=== PATIENT | female | born 1945 | race Caucasian/White ===

== ENCOUNTER 2018-09-22 10:19 | Emergency (ER) | payer BC, MEDICARE ==
--- NOTE | 2018-09-22 10:54 | ERPHSYRPT ---
- History of Present Illness Time Seen by Provider: 09/22/18 10:30 Historian: patient Exam Limitations: no limitations Patient Subjective Stated Complaint: PT states "I was just sitting there and my chest started to hurt, I got really sweaty and nauseous. I took 2 sprays of nitro and it seems to be helping but my chest still hurts." Triage Nursing Assessment: PT alert and oriented X 3, skin pwd. PT ambulates with an upright steady gait, able to speakin clear full sentences. PT left leg swollen in the calf and red. Physician History: Pt is a pleasant 73 y/o female. She states, was sitting on couch, and suddenly developed left sided chest pain that radiated to her left arm, developed cold sweat, and dizziness. Pt stated, she took her nitro sprayx2, and that helped her. She was told to come to the ER for a work up. Pt states, has pain in her left calf as well, as she was off her Coumadin, for a minor surgery for removal of lypoma. Pt denies SOB or wheeze. No F/C/S. No N/V/D or abdominal pain. No edema. Timing/Duration: today Activities at Onset: none Quality: pressure, tightness Location: substernal (left chest pain) Chest Pain Radiation: arm Severity of Pain-Max: moderate Severity of Pain-Current: mild Modifying Factors: Improves With: nitroglycerin Associated Symptoms: diaphoresis Prior Chest Pain/Cardiac Workup: cardiac cath (no stent or CABG) Nitro Today/Relief: 0.4 mg x 2, provided at home Aspirin Treatment Today: no aspirin today Allergies/Adverse Reactions: ceftriaxone sodium [From Rocephin] Adverse Reaction (Intermediate, Verified 08:45) N/V acetaminophen [From Vicodin] Adverse Reaction (Mild, Verified 08/12/18 08:45) Vomiting hydrocodone bitartrate [From Vicodin] Adverse Reaction (Mild, Verified 08/12/18 08:45) Vomiting Home Medications: Warfarin Sodium 3 mg PO DAILY 01/17/15 [History] cephALEXin [Cephalexin] 500 mg PO DAILY 09/22/18 [History] Hx Tetanus, Diphtheria Vaccination/Date Given: Yes Hx Influenza Vaccination/Date Given: Yes Hx Pneumococcal Vaccination/Date Given: Yes Immunizations Up to Date: Yes - Review of Systems Constitutional: Other (Diaphoresis), No Fever, No Chills Eyes: No Symptoms Ears, Nose, & Throat: No Symptoms Respiratory: No Cough, No Dyspnea Cardiac: Chest Pain Abdominal/Gastrointestinal: No Abdominal Pain, No Nausea, No Vomiting, No Diarrhea Genitourinary Symptoms: No Dysuria Musculoskeletal: Other (pain in left calf.) Skin: No Rash Neurological: No Dizziness, No Focal Weakness, No Sensory Changes Psychological: No Symptoms Endocrine: No Symptoms All Other Systems: Reviewed and Negative - Past Medical History Pertinent Past Medical History: Yes Neurological History: No Pertinent History ENT History: No Pertinent History Cardiac History: No Pertinent History Respiratory History: Sleep Apnea Endocrine Medical History: No Pertinent History Musculoskeletal History: Arthritis GI Medical History: Gallbladder Disease, Hemorrhoids, Pancreatitis History: No Pertinent History Psycho-Social History: Anxiety Female Reproductive Disorders: No Pertinent History Other Medical History: hand tremors - Past Surgical History Past Surgical History: Yes Neuro Surgical History: No Pertinent History Cardiac: Cardiac Catheterization Respiratory: No Pertinent History Gastrointestinal: Appendectomy, Cholecystectomy, Hernia Repair Genitourinary: Other Musculoskeletal: Joint Replacement, Orthopedic Surgery Female Surgical History: Hysterectomy Other Surgical History: hiatal hernia repair. right hip replacement. surgical removal of cyst on buttock - Social History Smoking Status: Never smoker Exposure to second hand smoke: No Drug Use: none Patient Lives Alone: No - Female History Hx Now: No - Nursing Vital Signs Nursing Vital Signs: Initial Vital Signs Temperature 99.2 F 09/22/18 10:22 Pulse Rate 90 09/22/18 10:22 Respiratory Rate 18 09/22/18 10:22 Blood Pressure 116/68 09/22/18 10:22 O2 Sat by Pulse Oximetry 94 L 09/22/18 10:22 Pain Scale Pain Intensity 2 - Physical Exam General Appearance: no apparent distress, alert Eye Exam: PERRL/EOMI, eyes nml inspection Ears, Nose, Throat Exam: normal ENT inspection, moist mucous membranes Neck Exam: normal inspection, non-tender, supple, full range of motion Respiratory Exam: normal breath sounds, lungs clear, No respiratory distress Cardiovascular Exam: regular rate/rhythm, normal heart sounds Gastrointestinal/Abdomen Exam: soft, No tenderness, No mass Back Exam: normal inspection, No CVA tenderness, No vertebral tenderness Extremity Exam: normal inspection, normal range of motion, tenderness (of L calf with palpation) Neurologic Exam: alert, oriented x 3, cooperative, normal mood/affect, sensation nml, No motor deficits Skin Exam: normal color, warm, dry SpO2: 94 Oxygen Delivery: Room Air - Course EKG Interpreted by Me: RATE (86), Sinus Rhythm, NORMAL AXIS - CT Exams Chest CT Interpretation: Other (Complete intrathoracic stomach and herniated knuckle of transverse colon.) - Radiology Ultrasound Exam Left Venous Lower Extremity Ultrasound: Other (new thrombosis throughout the greater saphenous vein.) Ordered Tests: Active Orders 24 hr Category Date Time Status Water Sander STAT Care 09/22/18 10:39 Active Oxygen-ED Only NASAL CANNULA 2 lpm Care 09/22/18 10:37 Active CHEST 2 VIEWS (PA AND LAT) Stat Exams 09/22/18 10:38 Completed CHEST WITH CONTRAST [CT] Stat Exams 09/22/18 11:24 Completed VENOUS UNILAT/LIMITED EXTREMIT [US] Stat Exams 09/22/18 11:31 Completed CBC W DIFF Stat Lab 09/22/18 10:54 Completed CMP Stat Lab 09/22/18 10:54 Completed D-DIMER QUANTITATION Stat Lab 09/22/18 10:54 Completed PROTIME WITH INR Stat Lab 09/22/18 10:54 Completed PTT Stat Lab 09/22/18 10:54 Completed TROPONIN Q3H Lab 09/22/18 10:45 Completed Medication Summary Generic Name Dose Route Start Last Admin Trade Name Freq PRN Reason Stop Dose Admin Enoxaparin Sodium 100 mg 09/22/18 12:00 09/22/18 12:05 Enoxaparin Sodium 1 mg/kg (100 mg) 10/22/18 11:59 100 mg SQ Administration Q12H NERY Sodium Chloride 1,000 mls @ 100 mls/hr 09/22/18 14:45 09/22/18 14:43 Sodium Chloride 0.9% 1000 Ml IV 10/22/18 14:44 100 mls/hr .Q10H NERY Administration Discontinued Medications Generic Name Dose Route Start Last Admin Trade Name Freq PRN Reason Stop Dose Admin Enoxaparin Sodium Confirm 09/22/18 12:02 Enoxaparin Sodium Administered 09/22/18 12:03 Dose 120 mg SQ .STK-MED ONE Sodium Chloride Confirm 09/22/18 14:17 Sodium Chloride 0.9% 1000 Ml Administered 09/22/18 14:18 Dose 1,000 mls @ ud .ROUTE .[facility] ONE Lab/Rad Data: Laboratory Result Diagrams 09/22/18 10:54 09/22/18 10:54 Laboratory Results 09/22/18 09/22/18 09/22/18 Range/Units 10:54 10:54 10:54 WBC 4.9 (4.0-10.5) K/mm3 RBC 4.12 (4.1-5.4) M/mm3 Hgb 12.1 (12.0-16.0) gm/dl Hct 38.9 (35-47) % MCV 94.4 (78-100) fl MCH 29.4 (26-32) pg MCHC 31.1 L (32-36) g/dl RDW 14.6 H (11.5-14.0) % Plt Count 146 L (150-450) K/mm3 MPV 10.0 H (6-9.5) fl Gran % 57.5 (36.0-66.0) % Eos # (Auto) 0.14 (0-0.5) Absolute Lymphs (auto) 1.33 (1.0-4.6) Absolute Monos (auto) 0.62 (0.0-1.3) Lymphocytes % 26.9 (24.0-44.0) % Monocytes % 12.6 H (0.0-12.0) % Eosinophils % 2.8 (0.00-5.0) % Basophils % 0.2 (0.0-0.4) % Absolute Granulocytes 2.84 (1.4-6.9) Basophils # 0.01 (0-0.4) PT 15.9 H (9.95-12.35) SECONDS INR 1.36 (0.8-3.0) APTT 26.8 (25.3-37.0) SECONDS D-Dimer 4041 H* (215-500) ng/mL Sodium 141 (137-145) mmol/L Potassium 3.7 (3.5-5.1) mmol/L Chloride 103 (98-107) mmol/L Carbon Dioxide 30 (22-30) mmol/L Anion Gap 11.6 (5-15) MEQ/L BUN 18 H (7-17) mg/dL Creatinine 1.06 H (0.52-1.04) mg/dL Estimated GFR 54.0 ML/MIN Glucose 94 (74-106) mg/dL Calcium 8.9 (8.4-10.2) mg/dL Total Bilirubin 0.50 (0.2-1.3) mg/dL AST 14 (14-36) U/L ALT 18 (0-35) U/L Alkaline Phosphatase 77 (38-126) U/L Troponin I (0.000-0.034) ng/mL Serum Total Protein 7.2 (6.3-8.2) g/dL Albumin 3.7 (3.5-5.0) g/dL 09/22/18 Range/Units 10:45 WBC (4.0-10.5) K/mm3 RBC (4.1-5.4) M/mm3 Hgb (12.0-16.0) gm/dl Hct (35-47) % MCV (78-100) fl MCH (26-32) pg MCHC (32-36) g/dl RDW (11.5-14.0) % Plt Count (150-450) K/mm3 MPV (6-9.5) fl Gran % (36.0-66.0) % Eos # (Auto) (0-0.5) Absolute Lymphs (auto) (1.0-4.6) Absolute Monos (auto) (0.0-1.3) Lymphocytes % (24.0-44.0) % Monocytes % (0.0-12.0) % Eosinophils % (0.00-5.0) % Basophils % (0.0-0.4) % Absolute Granulocytes (1.4-6.9) Basophils # (0-0.4) PT (9.95-12.35) SECONDS INR (0.8-3.0) APTT (25.3-37.0) SECONDS D-Dimer (215-500) ng/mL Sodium (137-145) mmol/L Potassium (3.5-5.1) mmol/L Chloride (98-107) mmol/L Carbon Dioxide (22-30) mmol/L Anion Gap (5-15) MEQ/L BUN (7-17) mg/dL Creatinine (0.52-1.04) mg/dL Estimated GFR ML/MIN Glucose (74-106) mg/dL Calcium (8.4-10.2) mg/dL Total Bilirubin (0.2-1.3) mg/dL AST (14-36) U/L ALT (0-35) U/L Alkaline Phosphatase (38-126) U/L Troponin I < 0.012 (0.000-0.034) ng/mL Serum Total Protein (6.3-8.2) g/dL Albumin (3.5-5.0) g/dL - Progress Progress: unchanged Air Movement: fair Blood Culture(s) Obtained: No Antibiotics given: No Will see patient in: ED ([facility], per Dr Reid, surgery) Counseled pt/family regarding: diagnosis, rad results - Departure Time of Disposition: 15:13 Departure Disposition: Transfer ([facility] ER per Liu Sorto) Clinical Impression: Hiatal hernia Condition: Stable Critical Care Time: No Referrals: VENANCIO PATEL MD [Primary Care Provider] - Additional Instructions: Pt will be transfered to ER of [facility] per Dr Liu Reid, surgery. Per surgeon, pt to be NPO, and NG will be placed. Lovenox was given earlier for DVT , pt's INR 1.3. Continuation of anti coagulation per [facility] surgeon. Family and pt are aware.
[2018-09-22 10:58] LABS: BASOPHIL % 0.2 % (0.0-0.4); Basophil (Absolute #) 0.01 (0-0.4); Eosinophil % 2.8 % (0.00-5.0); Eosinophil (Absolute #) 0.14 (0-0.5); Granulocyte Absolute (ANC) 2.84 (1.4-6.9); Granulocytes % 57.5 % (36.0-66.0); Hematocrit 38.9 % (35-47); Hemoglobin 12.1 gm/dl (12.0-16.0); Lymphocyte (Absolute #) 1.33 (1.0-4.6); Lymphocytes % 26.9 % (24.0-44.0); Mean Cell Volume 94.4 fl (78-100); Mean Corpuscular Hemoglobin 29.4 pg (26-32); Mean Corpuscular Hgb Concent. 31.1 g/dl (32-36); Monocyte (Absolute #) 0.62 (0.0-1.3); Monocytes % 12.6 % (0.0-12.0); Platelet Count 146 K/mm3 (150-450); Red Blood Count 4.12 M/mm3 (4.1-5.4); Red Cell Distribution Width 14.6 % (11.5-14.0); White Blood Count 4.9 K/mm3 (4.0-10.5)
[2018-09-22 11:13] LABS: INR 1.36 (0.8-3.0)
[2018-09-22 11:16] LABS: PTT 26.8 SECONDS (25.3-37.0)
[2018-09-22 11:17] LABS: ALBUMIN 3.7 g/dL (3.5-5.0); ANION GAP 11.6 MEQ/L (5-15); BILIRUBIN,TOTAL 0.5 mg/dL (0.2-1.3); Calcium 8.9 mg/dL (8.4-10.2); Creatinine 1 1.06 mg/dL (0.52-1.04); Potassium 3.7 mmol/L (3.5-5.1); Total Protein 7.2 g/dL (6.3-8.2)
--- NOTE | 2018-09-22 11:31 | XRAY ---
Indication: Chest pain. Comparison: January 15, 2018. PA/lateral chest unchanged again demonstrating normal heart and lungs with large hiatal hernia and partial intrathoracic stomach. Stable right venous access catheter. Bony thorax intact. No new/acute findings.
--- NOTE | 2018-09-22 11:46 | XRAY ---
Indication: Left leg pain. Two-dimensional sonogram and color Doppler imaging of the major venous vessels of the left leg was performed. Comparison: January 06, 2014. Again superficial venous thrombosis at the level of calf. New near occluding thrombosis throughout the greater saphenous vein. Remaining common femoral, superficial femoral, deep femoral, popliteal, and posterior tibial veins are negative for thrombosis. These patent veins demonstrate normal compressibility and normal venous waveforms. Impression: New thrombosis throughout the greater saphenous vein. At the level of the calf, there is again superficial venous thrombosis.
[2018-09-22] MEDS ORDERED: ENOXAPARIN SODIUM SQ SCH (12:00)
[2018-09-22] MEDS ORDERED: ENOXAPARIN SODIUM SQ ONE (12:02)
--- NOTE | 2018-09-22 12:37 | XRAY ---
Indication: Chest pain and short of breath. Elevated d-dimer. Multiple contiguous axial images obtained through the chest using 80 cc Isovue 370 contrast and PE protocol. Comparison: July 03, 2007. There is good opacification of the pulmonary arteries to include the lobar and segmental branches. No filling defect or pulmonary embolus. Heart is not enlarged. Aorta minimally arteriosclerotic without aneurysm/dissection. New right Port-A-Cath. No pathologic mediastinal/hilar lymphadenopathy. Interval enlarging large hiatal hernia with now intrathoracic stomach and also herniated mesenteric fat and a knuckle of transverse colon. Examination of the lung parenchyma demonstrates minimal bilateral dependent atelectasis. Large hiatal hernia again produces bibasilar compressive atelectasis. New 12 mm left lower lobe calcified granuloma. Also new 3-4 mm peripheral left upper lobe noncalcified nodule probably granulomatous (image 15, series 4). No infiltrate or effusion. Bony thorax intact with mild degenerative changes throughout the spine. Limited upper abdomen again demonstrates mild fatty liver. Impression: 1. Negative pulmonary embolus. No acute cardiopulmonary abnormalities. 2. Worsening large hiatal hernia with now complete intrathoracic stomach and herniated knuckle of transverse colon. No complications. 3. New left lower lobe calcified granuloma and tiny left upper lobe noncalcified nodule probably granulomatous. 4. Stable fatty liver. CT DI 23.59
[2018-09-22] MEDS ORDERED: Sodium Chloride 0.9% 1000 ML 1,000 ML ONE (14:17)
[2018-09-22] MEDS ORDERED: Sodium Chloride 0.9% 1000 ML 1,000 ML IV SCH (14:45)
[2018-09-22 15:09] VITALS: BP 166/90
[2018-09-22 15:12] VITALS: O2SAT 94
[2018-09-22] MEDS ORDERED: Zofran 4 MG/2 ML VIAL IV ONE (15:54)
[2018-09-22 15:56] VITALS: PULSE 104
[2018-09-22] MEDS ORDERED: Zofran 4 MG/2 ML VIAL ONE (15:56)
== END 2018-09-22 16:30 | disposition short-term general hospital (02) ==
LOC: ED 10:19
DX: K44.9 Diaphragmatic hernia without obstruction or gangrene (principal); G47.30 Sleep apnea, unspecified; M19.90 Unspecified osteoarthritis, unspecified site; Z79.01 Long term (current) use of anticoagulants; Z79.899 Other long term (current) drug therapy
CPT/HCPCS: 36415; 71046; 71260; 80053; 84484; 85025; 85379; 85610; 85730; 93041; 93971; 96372; 96374; 99285; J1650; J2405

== ENCOUNTER 2019-04-13 13:56 | Emergency (ER) | payer BC, MEDICARE ==
[2019-04-13] MEDS ORDERED: Zofran 4 MG/2 ML VIAL ONE ×2 (14:35→17:36)
[2019-04-13] MEDS ORDERED: Zofran 4 MG/2 ML VIAL IV ONE ×2 (14:36→17:34)
[2019-04-13] MEDS ORDERED: Sodium Chloride 0.9% 1000 ML 1,000 ML IV STA (14:48)
[2019-04-13] MEDS ORDERED: MORPHINE SULFATE 4 MG INJ IV ONE (14:48)
--- NOTE | 2019-04-13 14:55 | ERPHSYRPT ---
- History of Present Illness Time Seen by Provider: 04/13/19 14:44 Historian: patient Exam Limitations: no limitations Patient Subjective Stated Complaint: pt reports vomiting starting yesterday, also reports abdominal pain. pt states "one minute i am cold and the next i am hot" pt reports having an extensive abdominal surgery September 2018 and states the pain is where her surgery site is located. Triage Nursing Assessment: pt is aox3, pupils perrl, febrile, resps easy and non labored, radial pulses strong and equal, cap refill < 3 seconds, abd soft, tender to the epigastrum and upper mid abdomen, bowel sounds present and normoactive x4. pt skin pink warm dry. Physician History: 73-year-old white female with history of sleep apnea, arthritis, gallbladder disease, hemorrhoids, pancreatitis, anxiety Patient arrives with complaint of epigastric pain which has been going since Thursday 2 days ago became much worse yesterday she states is associated with vomiting She has had a fever on arrival. Past medical history includes sleep apnea, arthritis, gallbladder disease, hemorrhoids, pancreatitis, anxiety, carpal tunnel Past surgical history includes cardiac catheter, appendectomy, cholecystectomy, hernia repair, hiatal hernia repair, hysterectomy, right hip replacement Timing/Duration: day(s) (2 days) Activities at Onset: none Quality: aching, cramping Abdominal Pain Onset Location: epigastric Pain Radiation: no radiation Severity of Pain-Max: moderate Severity of Pain-Current: moderate Modifying Factors: Improves With: vomiting. Worsens With: analgesics, antacids , breathing, coughing, defecating, eating, exercise, lying down, movement, palpation, rest, urinating, position, walking Associated Symptoms: fever/chills, nausea, vomiting, No back, No chest pain, No diaphoresis, No diarrhea, No fatigue, No headache, No heartburn, No loss of appetite, No neck pain, No rash, No shortness of breath, No syncope Previous symptoms: no prior history Allergies/Adverse Reactions: ceftriaxone sodium [From Rocephin] Adverse Reaction (Intermediate, Verified 14:15) N/V acetaminophen [From Vicodin] Adverse Reaction (Mild, Verified 04/13/19 14:15) Vomiting hydrocodone bitartrate [From Vicodin] Adverse Reaction (Mild, Verified 04/13/19 14:15) Vomiting Home Medications: Omeprazole 40 mg PO DAILY 04/13/19 [History] Sucralfate 1 gm [Carafate 1 GM] 1 gm PO BID 04/13/19 [History] Warfarin Sodium 3 mg [Coumadin 3 MG] 3.5 mg PO DAILY 04/13/19 [History] Hx Tetanus, Diphtheria Vaccination/Date Given: Yes Hx Influenza Vaccination/Date Given: Yes Hx Pneumococcal Vaccination/Date Given: Yes Immunizations Up to Date: No - Review of Systems Constitutional: Fever, No Chills Eyes: No Symptoms Respiratory: No Cough, No Dyspnea Cardiac: No Chest Pain, No Edema, No Palpitations, No Syncope, No Orthopnea, No PND Abdominal/Gastrointestinal: Abdominal Pain, Nausea, Vomiting, No Diarrhea, No Constipation, No Hematemesis, No Hematochezia, No Melena, No Dysphagia, No Appetite Changes Genitourinary Symptoms: No Dysuria Musculoskeletal: No Back Pain, No Neck Pain Skin: No Rash Neurological: No Dizziness, No Focal Weakness, No Sensory Changes Psychological: No Symptoms Endocrine: No Symptoms All Other Systems: Reviewed and Negative - Past Medical History Pertinent Past Medical History: Yes Neurological History: No Pertinent History ENT History: No Pertinent History Cardiac History: No Pertinent History Respiratory History: Sleep Apnea Endocrine Medical History: No Pertinent History Musculoskeletal History: Arthritis GI Medical History: Gallbladder Disease, Hemorrhoids, Pancreatitis History: No Pertinent History Psycho-Social History: Anxiety Female Reproductive Disorders: No Pertinent History Other Medical History: hand tremors - Past Surgical History Past Surgical History: Yes Neuro Surgical History: No Pertinent History Cardiac: Cardiac Catheterization Respiratory: No Pertinent History Gastrointestinal: Appendectomy, Cholecystectomy, Hernia Repair Genitourinary: Other Musculoskeletal: Joint Replacement, Orthopedic Surgery Female Surgical History: Hysterectomy Other Surgical History: hiatal hernia repair. right hip replacement. surgical removal of cyst on buttock - Social History Smoking Status: Never smoker Exposure to second hand smoke: No Drug Use: none Patient Lives Alone: No - Female History Hx Now: No - Nursing Vital Signs Nursing Vital Signs: Initial Vital Signs Temperature 101.4 F 04/13/19 14:04 Pulse Rate 97 H 04/13/19 14:04 Respiratory Rate 20 04/13/19 14:04 Blood Pressure 174/95 04/13/19 14:04 O2 Sat by Pulse Oximetry 95 04/13/19 14:04 Pain Scale Pain Intensity 4 - Physical Exam General Appearance: mild distress, alert Eye Exam: PERRL/EOMI, eyes nml inspection Ears, Nose, Throat Exam: normal ENT inspection, pharynx normal, moist mucous membranes Neck Exam: normal inspection, non-tender, supple, full range of motion Respiratory Exam: normal breath sounds, lungs clear, No respiratory distress Cardiovascular Exam: regular rate/rhythm, normal heart sounds, capillary refill <2 sec Gastrointestinal/Abdomen Exam: soft, normal bowel sounds, tenderness ( epigastric tenderness), organomegaly, No distention, No mass, No guarding, No ecchymosis, No pulsatile mass, No rebound, No hernia, No hepatomegaly, No splenomegaly Back Exam: normal inspection, normal range of motion, No CVA tenderness, No vertebral tenderness Extremity Exam: normal inspection, normal range of motion, pelvis stable Neurologic Exam: alert, oriented x 3, cooperative, nanotechnician II-XII nml as tested, normal mood/affect, nml cerebellar function, sensation nml, No motor deficits Skin Exam: normal color, warm, dry SpO2 Interpretation: normal (95%) SpO2: 95 - Course Nursing assessment & vital signs reviewed: Yes EKG Interpreted by Me: RATE (89 bpm), Sinus Rhythm, NORMAL AXIS, Other (EKG: Sinus rhythm, 89 beats per minute, normal axis, no acute ST or T wave changes noted) - CT Exams Abdomen/Pelvis CT Interpretation: Discussed w/radiologist (CT and pelvis: Impression: 1. Hazy increased attenuation of the intraperitoneal fat within the small bowel mesentery within the upper abdomen and left hemiabdomen. Consistent with mesenteric panniculitis. This was seen on the prior study as well but is more evident on the current exam. 2. Interval hiatal hernia repair surgery as compared to May 08, 2010. Small amount of nonspecific fluid in soft tissue density adjacent to the posterior aspect of the distal thoracic esophagus just above the surgical site. This may represent postsurgical changes. Correlate clinically 3. There is either some new mild to serial pleural thickening or minimal posterior right basilar pleural effusion as compared to May 08, 2010. 4. Significant intrahepatic and extrahepatic biliary duct distention which may be due to the patient's prior cholecystectomy. Correlate with laboratory data to exclude possibility of bile duct obstruction. There is no pancreatic head mass or definite stone within the distal common bile duct. 3. Small bilateral renal cysts, some focal cortical thinning and scarring at the lateral aspect of the upper pole of the left kidney, and is stable punctate calcification at the lateral margin of the lower pole of the left kidney are seen. There are no solid renal mass or obstructive uropathy 6. Mild diverticulosis without diverticulitis is seen within the distal left hemicolon. 7. Status post appendectomy and hysterectomy the patient has also undergone interval right hip replacement surgery. Moderate osteoarthritis within the left hip has progressed as compared to 2010. 8. An intravenous cava filter is seen in place. Also significant atherosclerotic vascular calcification at the origin of the left renal artery. Renal artery stenosis at this level cannot be excluded 9. Small fat containing ventral hernia in the midline superior to the umbilicus. This is seen on axial image #44 and 45. 10. Some varicosities are seen within the lower pelvis anteriorly, and to a lesser extent the left hemipelvis.. This is seen on prior study from 2009 as well) Ordered Tests: Active Orders 24 hr Category Date Time Status EKG-ER Only STAT Care 04/13/19 14:48 Active IV Insertion STAT Care 04/13/19 14:48 Active ABDOMEN AND PELVIS W CONTRAST [CT] Stat Exams 04/13/19 15:42 Completed AMYLASE Stat Lab 04/13/19 15:00 Completed BLOOD CULTURE Stat Lab 04/13/19 15:00 Ordered CBC W DIFF Stat Lab 04/13/19 15:00 Completed CMP Stat Lab 04/13/19 15:00 Completed CULTURE,URINE Stat Lab 04/13/19 15:16 Received LIPASE Stat Lab 04/13/19 15:00 Completed PROTIME WITH INR Stat Lab 04/13/19 14:10 Completed PTT Stat Lab 04/13/19 14:10 Completed TROPONIN Q3H Lab 04/13/19 15:00 Completed TROPONIN Q3H Lab 04/13/19 18:00 Ordered TROPONIN Q3H Lab 04/13/19 21:00 Ordered TROPONIN Q3H Lab 04/14/19 00:00 Ordered TROPONIN Q3H Lab 04/14/19 03:00 Ordered UA W/RFX UR CULTURE Stat Lab 04/13/19 15:16 Completed Medication Summary Generic Name Dose Route Start Last Admin Trade Name Freq PRN Reason Stop Dose Admin Levofloxacin/Dextrose 500 mg in 100 mls @ 100 mls/hr 04/13/19 17:52 04/13/19 18:02 Levofloxacin 500mg/100ml D5w IV 04/13/19 18:51 100 ml/hr STAT STA 100 mls/hr Administration Discontinued Medications Generic Name Dose Route Start Last Admin Trade Name Mandeep PRN Reason Stop Dose Admin Sodium Chloride 1,000 mls @ 999 mls/hr 04/13/19 14:48 04/13/19 16:30 Sodium Chloride 0.9% 1000 Ml IV 04/13/19 15:48 Infused .Q1H1M STA Infusion Sodium Chloride Confirm 04/13/19 15:17 Sodium Chloride 0.9% 1000 Ml Administered 04/13/19 15:18 Dose 1,000 mls @ ud .ROUTE .STK-MED ONE Levofloxacin/Dextrose Confirm 04/13/19 18:00 Levofloxacin 500mg/100ml D5w Administered 04/13/19 18:01 Dose 500 mg in 100 mls @ ud IV .STK-MED ONE Morphine Sulfate 4 mg 04/13/19 14:48 04/13/19 15:21 Morphine Sulfate 4 Mg Inj IV 04/13/19 14:49 4 mg STAT ONE Administration Morphine Sulfate Confirm 04/13/19 15:17 Morphine Sulfate 4 Mg Inj Administered 04/13/19 15:18 Dose 4 mg .ROUTE .STK-MED ONE Ondansetron HCl 4 mg 04/13/19 14:36 04/13/19 14:37 Zofran 4 Mg/2 Ml Vial IV 04/13/19 14:37 4 mg STAT ONE Administration Ondansetron HCl Confirm 04/13/19 14:35 Zofran 4 Mg/2 Ml Vial Administered 04/13/19 14:36 Dose 4 mg .ROUTE .STK-MED ONE Ondansetron HCl 4 mg 04/13/19 17:34 04/13/19 17:38 Zofran 4 Mg/2 Ml Vial IV 04/13/19 17:35 4 mg STAT ONE Administration Ondansetron HCl Confirm 04/13/19 17:36 Zofran 4 Mg/2 Ml Vial Administered 04/13/19 17:37 Dose 4 mg .ROUTE .STK-MED ONE Lab/Rad Data: Laboratory Result Diagrams 04/13/19 15:00 04/13/19 15:00 Laboratory Results 04/13/19 04/13/19 04/13/19 Range/Units 15:16 15:00 15:00 WBC (4.0-10.5) K/mm3 RBC (4.1-5.4) M/mm3 Hgb (12.0-16.0) gm/dl Hct (35-47) % MCV (78-100) fl MCH (26-32) pg MCHC (32-36) g/dl RDW (11.5-14.0) % Plt Count (150-450) K/mm3 MPV (6-9.5) fl Gran % (36.0-66.0) % Eos # (Auto) (0-0.5) Absolute Lymphs (auto) (1.0-4.6) Absolute Monos (auto) (0.0-1.3) Lymphocytes % (24.0-44.0) % Monocytes % (0.0-12.0) % Eosinophils % (0.00-5.0) % Basophils % (0.0-0.4) % Absolute Granulocytes (1.4-6.9) Basophils # (0-0.4) PT (9.95-12.35) SECONDS INR (0.8-3.0) APTT (25.3-37.0) SECONDS Sodium 140 (137-145) mmol/L Potassium 4.1 (3.5-5.1) mmol/L Chloride 102 (98-107) mmol/L Carbon Dioxide 30 (22-30) mmol/L Anion Gap 12.5 (5-15) MEQ/L BUN 16 (7-17) mg/dL Creatinine 0.86 (0.52-1.04) mg/dL Estimated GFR > 60.0 ML/MIN Glucose 109 H (74-106) mg/dL Calcium 9.3 (8.4-10.2) mg/dL Total Bilirubin 0.70 (0.2-1.3) mg/dL AST 1216 H (14-36) U/L ALT 853 H (0-35) U/L Alkaline Phosphatase 383 H (38-126) U/L Troponin I < 0.012 (0.000-0.034) ng/mL Serum Total Protein 8.3 H (6.3-8.2) g/dL Albumin 3.9 (3.5-5.0) g/dL Amylase 91 (30-110) U/L Lipase 159 (23-300) U/L Urine Color YELLOW (YELLOW) Urine Appearance SLIGHTLY CLOUDY (CLEAR) Urine pH 5.0 (5-6) Ur Specific [place] 1.016 (1.005-1.025) Urine Protein NEGATIVE (Negative) Urine Ketones NEGATIVE (NEGATIVE) Urine Blood MODERATE (0-5) Naveen/ul Urine Nitrite NEGATIVE (NEGATIVE) Urine Bilirubin NEGATIVE (NEGATIVE) Urine Urobilinogen NEGATIVE (0-1) mg/dL Ur Leukocyte Esterase MODERATE (NEGATIVE) Urine WBC (Auto) 6-10 (0-5) /HPF Urine RBC (Auto) 26-50 (0-2) /HPF U Epithel Cells (Auto) RARE (FEW) /HPF Urine Bacteria (Auto) RARE (NEGATIVE) /HPF Urine Mucus (Auto) SLIGHT (NEGATIVE) /HPF Urine Culture Reflexed YES (NO) Urine Glucose NEGATIVE (NEGATIVE) mg/dL 04/13/19 04/13/19 Range/Units 15:00 14:10 WBC 4.9 (4.0-10.5) K/mm3 RBC 4.33 (4.1-5.4) M/mm3 Hgb 12.2 (12.0-16.0) gm/dl Hct 38.9 (35-47) % MCV 89.8 (78-100) fl MCH 28.2 (26-32) pg MCHC 31.4 L (32-36) g/dl RDW 14.9 H (11.5-14.0) % Plt Count 167 (150-450) K/mm3 MPV 10.1 H (6-9.5) fl Gran % 72.6 H (36.0-66.0) % Eos # (Auto) 0.08 (0-0.5) Absolute Lymphs (auto) 0.88 L (1.0-4.6) Absolute Monos (auto) 0.38 (0.0-1.3) Lymphocytes % 18.0 L (24.0-44.0) % Monocytes % 7.8 (0.0-12.0) % Eosinophils % 1.6 (0.00-5.0) % Basophils % 0.0 (0.0-0.4) % Absolute Granulocytes 3.54 (1.4-6.9) Basophils # 0 (0-0.4) PT 56.2 H (9.95-12.35) SECONDS INR 4.76 H (0.8-3.0) APTT 49.2 H (25.3-37.0) SECONDS Sodium (137-145) mmol/L Potassium (3.5-5.1) mmol/L Chloride (98-107) mmol/L Carbon Dioxide (22-30) mmol/L Anion Gap (5-15) MEQ/L BUN (7-17) mg/dL Creatinine (0.52-1.04) mg/dL Estimated GFR ML/MIN Glucose (74-106) mg/dL Calcium (8.4-10.2) mg/dL Total Bilirubin (0.2-1.3) mg/dL AST (14-36) U/L ALT (0-35) U/L Alkaline Phosphatase (38-126) U/L Troponin I (0.000-0.034) ng/mL Serum Total Protein (6.3-8.2) g/dL Albumin (3.5-5.0) g/dL Amylase (30-110) U/L Lipase (23-300) U/L Urine Color (YELLOW) Urine Appearance (CLEAR) Urine pH (5-6) Ur Specific [place] (1.005-1.025) Urine Protein (Negative) Urine Ketones (NEGATIVE) Urine Blood (0-5) Naveen/ul Urine Nitrite (NEGATIVE) Urine Bilirubin (NEGATIVE) Urine Urobilinogen (0-1) mg/dL Ur Leukocyte Esterase (NEGATIVE) Urine WBC (Auto) (0-5) /HPF Urine RBC (Auto) (0-2) /HPF U Epithel Cells (Auto) (FEW) /HPF Urine Bacteria (Auto) (NEGATIVE) /HPF Urine Mucus (Auto) (NEGATIVE) /HPF Urine Culture Reflexed (NO) Urine Glucose (NEGATIVE) mg/dL - Progress Progress: improved Progress Note: 04/13/19 18:04 Patient was given IV normal saline Levaquin 500 mg IV and Zofran 4 mg IV x2 also patient given morphine 4 mg IV for pain. Patient was noted to have panniculitis as well as dilated hepatic ducts on CT abdomen Patient was noted to have elevated liver enzymes. Case was discussed with Dr. Patel he felt that the patient should be transferred to [facility] due to the fact that the patient will need a motion picture operator and possible ERCP. I discussed the case with Dr. Olivas at [facility] to [facility] one call he has except for the patient for transfer. - Departure Departure Disposition: Transfer ([facility]) Clinical Impression: Panniculitis, dilated hepatic ducts, Elevated liver enzymes Abdominal pain Qualifiers: Abdominal location: epigastric Qualified Code(s): R10.13 - Epigastric pain Nausea and vomiting Qualifiers: Vomiting type: unspecified Vomiting Intractability: non-intractable Qualified Code(s): R11.2 - Nausea with vomiting, unspecified Condition: Fair Critical Care Time: No Referrals: VENANCIO PATEL MD [Primary Care Provider] -
[2019-04-13] MEDS ORDERED: Sodium Chloride 0.9% 1000 ML 1,000 ML ONE (15:17)
[2019-04-13] MEDS ORDERED: MORPHINE SULFATE 4 MG INJ ONE (15:17)
[2019-04-13 15:22] LABS: Basophil (Absolute #) 0 (0-0.4); Eosinophil % 1.6 % (0.00-5.0); Eosinophil (Absolute #) 0.08 (0-0.5); Granulocyte Absolute (ANC) 3.54 (1.4-6.9); Granulocytes % 72.6 % (36.0-66.0); Hematocrit 38.9 % (35-47); Hemoglobin 12.2 gm/dl (12.0-16.0); Lymphocyte (Absolute #) 0.88 (1.0-4.6); Mean Cell Volume 89.8 fl (78-100); Mean Corpuscular Hemoglobin 28.2 pg (26-32); Mean Corpuscular Hgb Concent. 31.4 g/dl (32-36); Mean Platelet Volume 10.1 fl (6-9.5); Monocyte (Absolute #) 0.38 (0.0-1.3); Monocytes % 7.8 % (0.0-12.0); Platelet Count 167 K/mm3 (150-450); Red Blood Count 4.33 M/mm3 (4.1-5.4); Red Cell Distribution Width 14.9 % (11.5-14.0); White Blood Count 4.9 K/mm3 (4.0-10.5)
[2019-04-13 15:23] LABS: ALBUMIN 3.9 g/dL (3.5-5.0); ALKALINE PHOSPHATASE 383 U/L (38-126); AMYLASE 91 U/L (30-110); ANION GAP 12.5 MEQ/L (5-15); BLOOD UREA NITROGEN 16 mg/dL (7-17); CHLORIDE 102 mmol/L (98-107); Calcium 9.3 mg/dL (8.4-10.2); Carbon Dioxide 30 mmol/L (22-30); Creatinine 1 0.86 mg/dL (0.52-1.04); Glucose 109 mg/dL (74-106); LIPASE 159 U/L (23-300); Potassium 4.1 mmol/L (3.5-5.1); SODIUM 140 mmol/L (137-145); Total Protein 8.3 g/dL (6.3-8.2)
[2019-04-13 15:29] LABS: Appearance SLIGHTLY CLOUDY (CLEAR); Bacteria RARE /HPF (NEGATIVE); Bilirubin NEGATIVE (NEGATIVE); Blood MODERATE Ery/ul (0-5); Epithelial Cells RARE /HPF (FEW); Glucose NEGATIVE (NEGATIVE); Ketones NEGATIVE (NEGATIVE); Leukocyte Esterase MODERATE (NEGATIVE); Mucus SLIGHT /HPF (NEGATIVE); Nitrite NEGATIVE (NEGATIVE); Protein,Urine Dip NEGATIVE (Negative); RBC 26-50 /HPF (0-2); Specific Gravity 1.016 (1.005-1.025); Urobilinogen NEGATIVE mg/dL (0-1)
[2019-04-13 15:36] LABS: SGOT/AST 1216 U/L (14-36); SGPT/ALT 853 U/L (0-35)
--- NOTE | 2019-04-13 17:34 | XRAY ---
Exam: CT of the abdomen and pelvis with IV contrast from 04/13/2019. CTDI: 26.22 Comparison: CT of the abdomen and pelvis without IV contrast from 05/08/2010. Indication: 73-year-old female with upper mid abdominal pain and nausea/vomiting. Additional history: The patient has a prior history of cholecystectomy, appendectomy, hysterectomy, and hernia surgery. Technique: Post-IV contrast axial images were obtained through the abdomen and pelvis during automated injection of 80 cc of Isovue-370 contrast material. Reconstructed coronal and sagittal images were created and reviewed. Findings: The lung bases reveal a prominent calcified granuloma at the left lung base. Minimal pleural thickening and pleural calcification are seen at the posterior right lung base. Pleural calcification appears about the same. The pleural thickening is mildly increased. Minimal posterior right basilar pleural effusion is not excluded. In addition, there is some curvilinear density at the posterior lateral right lower lobe which I believe represents discoid atelectasis. Prior large retrocardiac hiatal hernia is no longer seen and has been apparently surgically corrected. I note several opaque densities near the projection of the gastroesophageal junction which probably represent surgical clips/suture material. Just superior and posterior to the surgical clips, I note a small amount of low-attenuation density, some of which appears to represent fluid measuring between +2.65 Hounsfield units. However, just inferior to this, this density measures +28.7 Hounsfield units suggesting soft tissue. This may relate to postsurgical change/scarring. Correlate clinically. The liver appears of unremarkable size. No hepatic mass is seen. The gallbladder is not seen consistent with the patient's history of prior cholecystectomy. There are no surgical clips within the right upper quadrant. I note moderate intrahepatic and extrahepatic biliary duct distention. The distal common bile duct measures up to 1.1 cm in maximum diameter. See coronal image #61. The biliary duct distention could be due to the patient's prior cholecystectomy. Correlate with laboratory values to exclude bile duct obstruction. The pancreas appears unremarkable. Specifically, no pancreatic head mass is seen. I believe there were a couple duodenal diverticula, one within the descending duodenum and the other within the ascending duodenum. The spleen appears of normal size. Dense vascular calcification is seen within the splenic hilus. No splenic mass is seen. The adrenal glands appear unremarkable. The right kidney measures 10.1 cm in length and the left kidney measures 10.4 cm in length. A small calcification at the lateral cortex margin of the lower pole of the left kidney is again seen. Several small bilateral renal cortical cysts are seen. I believe there is some focal cortical scarring and thinning at the lateral aspect of the upper pole of the left kidney representing no change. No solid renal mass or hydronephrosis is seen. No new renal calcifications are seen. The kidneys function on delayed images. The opacified ureters appear unremarkable. Moderate atherosclerotic vascular calcification is seen within the abdominal aorta and iliac arteries. No abdominal aortic aneurysm or abnormal retroperitoneal lymphadenopathy is seen. There is some dense atherosclerotic calcification at the origin of the left renal artery on coronal image #79. I cannot exclude renal artery stenosis at this level. This is more pronounced as compared to 04/13/2019. I again see an IVC filter extending from the lower aspect of L2 down to the upper aspect of L4. There is no free intraperitoneal air. A small midline supraumbilical fat-containing hernia is seen on sagittal image #98. No bowel containing ventral hernia is seen. In addition, there is some guido haziness within the small bowel mesentery. For example, see coronal images #33 through #60. This is suggestive of mesenteric panniculitis. I believe it was present on the prior CT exam as well, but it is more evident on today's study. Some scattered high attenuation particles mixed with stool are seen within the colon extending from the cecum to at least the mid descending colon. This may relate to oral contrast or medication. The appendix is surgically absent. No bowel wall thickening is seen. There is no evidence of bowel obstruction. There is mild scattered diverticulosis within the distal descending colon and sigmoid colon. No evidence of diverticulitis is seen. The uterus is surgically absent. No abnormal pelvic adnexal mass or enlarged pelvic lymph nodes are seen. There is no free intraperitoneal fluid. The urinary bladder is mildly distended and appears unremarkable. I again note some superficial varicosities within the lower anterior pelvis wall, a bit more prominent to the left of midline. Minimal varicosities are also seen within the left hemipelvis representing no significant change. There has been interval right hip replacement. I note moderate osteoarthritis of the left hip which has progressed as compared to 05/08/2010. No acute skeletal fracture or aggressive bone process is seen. There are degenerative changes within the lower thoracic spine and upper lumbar spine. Some disc calcification is seen at L1-L2. Small Schmorl's nodes are noted from T11-L1. Impression: 1. I note hazy increased attenuation of the intraperitoneal fat within the small bowel mesentery within the upper abdomen and left hemiabdomen. This is consistent with mesenteric panniculitis. This was seen on the prior study as well in retrospect, but is more evident on the current exam. 2. There has been interval hiatal hernia repair surgery as compared to 05/08/2010. I note a small amount of nonspecific fluid and soft tissue density adjacent to the posterior aspect of the distal thoracic esophagus just above the surgical site. This may represent chronic postsurgical changes. Correlate clinically. 3. There is either some new mild posterior pleural thickening or a minimal posterior right basilar pleural effusion as compared to 05/08/2010. 4. There is significant intrahepatic and extrahepatic biliary duct distention which may be due to the patient's prior cholecystectomy. Correlate with laboratory data to exclude the possibility of bile duct obstruction. There is no pancreatic head mass or definite stone within the distal common bile duct. 5. Small bilateral renal cysts, some focal cortical thinning and scarring at the lateral aspect of the upper pole of the left kidney, and a stable punctate calcification at the lateral margin of the lower pole of the left kidney are seen. There is no solid renal mass or obstructive uropathy. 6. Mild diverticulosis without diverticulitis is seen within the distal left hemicolon. 7. Status post appendectomy and hysterectomy. The patient has also undergone interval right hip replacement surgery. Moderate osteoarthritis within the left hip has progressed as compared to 2010. 8. An IVC filter is seen in place. I also see significant atherosclerotic vascular calcification at the origin of the left renal artery. Renal artery stenosis at this level cannot be excluded. 9. Small fat-containing ventral hernia in the midline superior to the umbilicus. This is seen on axial images #44 and #45. 10. Some varicosities are seen within the lower pelvis anteriorly, and to a lesser extent, the left hemipelvis. This is seen on the prior study from 2009 as well.
[2019-04-13] MEDS ORDERED: Levofloxacin 500MG/100ML D5W 500 MG/100 ML BAG IV STA (17:52)
[2019-04-13] MEDS ORDERED: Levofloxacin 500MG/100ML D5W 500 MG/100 ML BAG IV ONE (18:00)
[2019-04-13 18:08] LABS: INR 4.76 (0.8-3.0); PROTIME 56.2 SECONDS (9.95-12.35)
[2019-04-13 18:11] LABS: PTT 49.2 SECONDS (25.3-37.0)
[2019-04-13 18:14] VITALS: BP 134/74; PULSE 80
[2019-04-13 18:18] VITALS: O2SAT 95
== END 2019-04-13 18:37 | disposition short-term general hospital (02) ==
LOC: ED 13:56
DX: M79.3 Panniculitis, unspecified (principal); K76.89 Other specified diseases of liver; R74.8 Abnormal levels of other serum enzymes; R10.13 Epigastric pain; R11.2 Nausea with vomiting, unspecified
CPT/HCPCS: 36000; 36415; 74177; 80053; 81001; 82150; 83690; 84484; 85025; 85610; 85730; 87040; 87077; 87086; 87186; 93005; 96360; 96365; 96374; 96375; 96376; 99285; J1956; J2270; J2405

== ENCOUNTER 2022-05-27 12:14 | Emergency (ER) | payer BC, MEDICARE ==
--- NOTE | 2022-05-27 12:37 | ERPHSYRPT ---
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 Patient was thought to have mild cellulitis in the left upper extremity. Doxycycline 50 twice daily was ordered for this. Because of her history of DVT patient, a left upper extremity venous Doppler was ordered. Patient was having pain in her left upper extremity and a venous Doppler was performed as an outpatient prior to arrival to this emergency department. Because of the findings of a occluding thrombus in the left axilla, basilic and antecubital veins, patient was sent to the emergency department for further evaluation and management. Patient was also seen at the Coumadin clinic and her PT/INR were 12.2 and 1.17 respectively. The pharmacist Quoc Rainey runs the Coumadin clinic and he has already increased her Coumadin medication dosing with an increase to 6 mg today then increased the scheduled dose starting on 05/28/2022. Patient's primary care physician, Dr. Patel, is out of the office today. Patient is not short of breath. She has no cough and she has no chest pain. Occurred: just prior to arrival Method of Injury: other (No injury) Quality: aching (Left upper extremity) Severity of Pain-Max: mild (Mild to moderate) Severity of Pain-Current: mild (Mild to moderate) Extremities Pain Location: arm: left Modifying Factors: Improves With: movement Allergies/Adverse Reactions: ceftriaxone sodium [From Rocephin] Adverse Reaction (Intermediate, Verified 01/03/20 10:55) N/V acetaminophen [From Vicodin] Adverse Reaction (Mild, Verified 01/03/20 10:55) Vomiting hydrocodone bitartrate [From Vicodin] Adverse Reaction (Mild, Verified 01/03/20 10:55) Vomiting Home Medications: Omeprazole 40 mg PO DAILY 04/13/19 [History] Sucralfate 1 gm [Carafate 1 GM] 1 gm PO BID 04/13/19 [History] Cetirizine HCl 10 mg PO DAILY 06/21/19 [History] Albuterol 8 gm Mdi Hfa [Ventolin Hfa MDI] 2 puffs IH DAILY PRN PRN 08/16/19 [History] Bacillus Coagulans [Probiotic] 1 tab PO DAILY 08/16/19 [History] Multivitamin [Multi-Vitamin Daily] 1 each PO DAILY 08/16/19 [History] Hx Tetanus, Diphtheria Vaccination/Date Given: Yes Hx Influenza Vaccination/Date Given: Yes Hx Pneumococcal Vaccination/Date Given: Yes Travel Risk - International Travel Have you traveled outside of the country in past 3 weeks: No - Coronavirus Screening Are you exhibiting any of the following symptoms?: No Close contact with a COVID-19 positive Pt in past 14-21 Days: No - Review of Systems Constitutional: No Symptoms Eyes: No Symptoms Ears, Nose, & Throat: No Symptoms Respiratory: No Symptoms Cardiac: No Symptoms Abdominal/Gastrointestinal: No Symptoms Genitourinary Symptoms: No Symptoms Musculoskeletal: Other (Left upper arm pain) Skin: No Symptoms Neurological: No Symptoms Psychological: No Symptoms Endocrine: No Symptoms Hematologic/Lymphatic: No Symptoms Immunological/Allergic: No Symptoms All Other Systems: Reviewed and Negative - Past Medical History Pertinent Past Medical History: Yes Neurological History: No Pertinent History ENT History: No Pertinent History Cardiac History: No Pertinent History, Deep Vein Thrombosis Respiratory History: Asthma, Sleep Apnea Endocrine Medical History: No Pertinent History Musculoskeletal History: Arthritis GI Medical History: Gallbladder Disease, Hemorrhoids, Pancreatitis History: No Pertinent History Psycho-Social History: Anxiety Female Reproductive Disorders: No Pertinent History Other Medical History: hand tremors, stone in bile duct. - Past Surgical History Past Surgical History: Yes Neuro Surgical History: No Pertinent History Cardiac: Cardiac Catheterization Respiratory: No Pertinent History Gastrointestinal: Appendectomy, Cholecystectomy, Hernia Repair Genitourinary: Other Musculoskeletal: Joint Replacement, Orthopedic Surgery Female Surgical History: Hysterectomy Other Surgical History: hiatal hernia repair. right hip replacement. surgical removal of cyst on buttock, ERCP for stone removal - Social History Smoking Status: Never smoker Exposure to second hand smoke: No Drug Use: none Patient Lives Alone: No - Physical Exam General Appearance: no apparent distress, alert, obese Eyes, Ears, Nose, Throat Exam: normal ENT inspection, moist mucous membranes Neck Exam: normal inspection, non-tender, supple, full range of motion Cardiovascular/Respiratory Exam: chest non-tender, no respiratory distress Abdominal Exam: non-tender Back Exam: normal inspection, normal range of motion, No CVA tenderness, No vertebral tenderness Shoulder Exam: soft tissue tenderness, swelling (Skin and soft tissue overlying left humerus.? Mild cellulitis) Elbow/Forearm Exam: normal inspection Wrist Exam: normal inspection, non-tender, no evidence of injury, normal ROM Hand Exam: normal inspection, non-tender, no evidence of injury, normal ROM Neuro/Tendon Exam: normal sensation, normal motor functions, normal tendon functions, responds to pain, no evidence tendon injury Mental Status Exam: alert, oriented x 3, cooperative Skin Exam: other (Cellulitis left upper extremity) SpO2 Interpretation: normal O2 Delivery: Room Air - Course Nursing assessment & vital signs reviewed: Yes - Progress Progress: unchanged, pain not gone completely, re-examined Progress Note: 05/27/22 12:40 Medical decision making: This patient has known DVT. She is not symptomatic with a cough or chest pain or shortness of breath. Her PT/INR are nontherapeutic for someone on Coumadin. Patient already has had her Coumadin medication adjusted for today and tomorrow after the results of her PT/INR in the Coumadin clinic today. I will give her a low dose of Lovenox today. We have arranged a follow-up appointment for her to see Dr. Patel tomorrow at 1 PM. Patient is to continue her doxycycline antibiotics to treat her cellulitis of her left upper extremity. I will also provide her with a prescription for short-term pain medication and antiemetic. Patient states that she can take Mammoth 5/325 but will need an antiemetic to take as well. We will send a prescription for Mammoth 5/325 and Zofran to her pharmacy. Counseled pt/family regarding: diagnosis, need for follow-up, rad results - Departure Departure Disposition: Home Clinical Impression: Left upper extremity deep vein thrombosis, Left arm cellulitis Condition: Stable Critical Care Time: No Referrals: VENANCIO PATEL MD [Primary Care Provider] - Follow up/PCP as directed Additional Instructions: Take your new Coumadin dosing starting today and continuing to tomorrow. Follow-up with Dr. Patel in his office at 1 PM tomorrow, 05/28/2022, afternoon. Take your antibiotics to treat your cellulitis. Take your other medications as prescribed. Prescriptions: Ondansetron ODT 4 MG [Zofran Odt 4 mg] 4 mg PO Q6H PRN PRN #10 tablet PRN Reason: Vomiting Hydrocodone/APAP 5/325 [Mammoth 5/325 mg] 1 each PO Q8H PRN PRN #6 tablet MDD 3 PRN Reason: Pain
[2022-05-27] MEDS ORDERED: ENOXAPARIN SODIUM SQ ONE ×2 (12:46→12:47)
[2022-05-27 12:57] VITALS: BP 162/88; PULSE 74; O2SAT 98
== END 2022-05-27 12:57 | disposition home or self-care (01) ==
LOC: ED 12:14
DX: I82.622 Acute embolism and thrombosis of deep veins of left upper extremity (principal); L03.114 Cellulitis of left upper limb; M79.602 Pain in left arm; Z86.718 Personal history of other venous thrombosis and embolism; Z79.01 Long term (current) use of anticoagulants; Z79.899 Other long term (current) drug therapy; Z79.891 Long term (current) use of opiate analgesic
CPT/HCPCS: 93971; 96372; 99281; J1650

== ENCOUNTER 2024-05-04 12:04 | Observation (INO) | payer BC, MEDICARE ==
--- NOTE | 2024-05-04 13:01 | ERPHSYRPT ---
- History of Present Illness Time Seen by Provider: 05/04/24 12:45 Source: patient Exam Limitations: no limitations Patient Subjective Stated Complaint: pt here for cough, congestion, and sob for a week now, she was seen last week at clinic was given a steriod shot she states she is not better, Triage Nursing Assessment: pt sent from clinic this morning for low o2 sats and cough, pt arrived per wc, alert, sob with excertion, sat 99% on room air, skin w.d.p, has dry hacky cough, Timing/Duration: week(s) (one ) Activities at Onset: activity Severity of Dyspnea-Max: mild Severity of Dyspnea-Current: mild Modifying Factors: Improves With: activity Associated Symptoms: intermittent Allergies/Adverse Reactions: ceftriaxone sodium [From Rocephin] Adverse Reaction (Intermediate, Verified 05/04/24 12:16) N/V Home Medications: Omeprazole 40 mg PO DAILY 04/13/19 [History] Sucralfate 1 gm [Carafate 1 GM] 1 gm PO BID 04/13/19 [History] Cetirizine HCl 10 mg PO DAILY 06/21/19 [History] Albuterol 8 gm Mdi Hfa [Ventolin Hfa MDI] 2 puffs IH DAILY PRN PRN 08/16/19 [History] Bacillus Coagulans [Probiotic] 1 tab PO DAILY 08/16/19 [History] Multivitamin [Multi-Vitamin Daily] 1 each PO DAILY 08/16/19 [History] Hx Tetanus, Diphtheria Vaccination/Date Given: Yes Hx Influenza Vaccination/Date Given: Yes Hx Pneumococcal Vaccination/Date Given: Yes Immunizations Up to Date: Yes Travel Risk - International Travel Have you traveled outside of the country in past 3 weeks: No - Emerging Infectious Disease Are you exhibiting symptoms associated with any current EIDs: Yes Symptoms: Cough: New Onset - Review of Systems Eyes: No Symptoms Ears, Nose, & Throat: No Symptoms Respiratory: No Symptoms, Cough, Dyspnea on Exertion (MONTES) Cardiac: No Symptoms Abdominal/Gastrointestinal: No Symptoms Genitourinary Symptoms: No Symptoms Musculoskeletal: No Symptoms Skin: No Symptoms Neurological: No Symptoms - Past Medical History Pertinent Past Medical History: Yes Neurological History: No Pertinent History ENT History: No Pertinent History Cardiac History: No Pertinent History, Deep Vein Thrombosis Respiratory History: Asthma, Sleep Apnea Endocrine Medical History: No Pertinent History Musculoskeletal History: Arthritis GI Medical History: Gallbladder Disease, Hemorrhoids, Pancreatitis History: No Pertinent History Psycho-Social History: Anxiety Female Reproductive Disorders: No Pertinent History Other Medical History: hand tremors, stone in bile duct. - Past Surgical History Past Surgical History: Yes Neuro Surgical History: No Pertinent History Cardiac: Cardiac Catheterization Respiratory: No Pertinent History Gastrointestinal: Appendectomy, Cholecystectomy, Hernia Repair Genitourinary: Other Musculoskeletal: Joint Replacement, Orthopedic Surgery Female Surgical History: Hysterectomy Other Surgical History: hiatal hernia repair. right hip replacement. surgical removal of cyst on buttock, ERCP for stone removal - Social History Smoking Status: Never smoker Exposure to second hand smoke: No Drug Use: none Patient Lives Alone: No - Social Determinants of Health Will the patient participate in the screening: Declined to provide - Nursing Vital Signs Nursing Vital Signs: Initial Vital Signs Temperature 97.2 F 05/04/24 12:24 Pulse Rate 100 H 05/04/24 12:24 Respiratory Rate 20 05/04/24 12:24 Blood Pressure 135/71 05/04/24 12:24 O2 Sat by Pulse Oximetry 98 05/04/24 12:24 Pain Scale Pain Intensity 0 - Physical Exam General Appearance: no apparent distress Eye Exam: PERRL/EOMI Ears, Nose, Throat Exam: hearing grossly normal Neck Exam: normal inspection Respiratory Exam: rhonchi, wheezing Cardiovascular/Chest Exam: normal heart sounds, regular rate/rhythm Abdominal/Gastrointestinal Exam: soft, normal bowel sounds Neurologic Exam: alert, oriented x 3 Skin Exam: normal color, warm SpO2 Interpretation: hypoxic SpO2: 96 Ordered Tests: Active Orders 24 hr Category Date Time Status CHEST 1 VIEW (PORTABLE) Stat Exams 05/04/24 12:55 Completed CHEST WITH CONTRAST [CT] Stat Exams 05/04/24 14:16 Taken CBC W DIFF Stat Lab 05/04/24 13:30 Completed CMP Stat Lab 05/04/24 13:38 Completed MAGNESIUM Stat Lab 05/04/24 13:38 Completed Medication Summary Generic Name Dose Route Start Last Admin Trade Name Freq PRN Reason Stop Dose Admin Chlorphenir/Hydrocodone Polistirex 5 ml 05/04/24 14:16 05/04/24 15:39 Hydrocodone/Chlorphen P-Stirex 1 Ml Brenda.Er.12h PO 06/03/24 14:15 5 ml [id number] PRN Administration COUGH Discontinued Medications Generic Name Dose Route Start Last Admin Trade Name Mandeep PRN Reason Stop Dose Admin Hydrocodone Bitart/Acetaminophen Confirm 05/04/24 15:20 Hydrocodone/Acetaminophen 5 Ml Udcup Administered 05/04/24 15:21 Dose 5 ml .ROUTE .STK-MED ONE Sodium Chloride 1,000 mls @ 500 mls/hr 05/04/24 17:00 05/04/24 17:03 Sodium Chloride 0.45% 1000 Ml IV 05/04/24 18:59 Not Given .Q2H ONE Sodium Chloride 1,000 mls @ 500 mls/hr 05/04/24 17:01 05/04/24 17:38 Sodium Chloride 0.9% 1000 Ml IV 05/04/24 19:00 500 mls/hr .Q2H STA Administration Sodium Chloride Confirm 05/04/24 17:16 Sodium Chloride 0.9% 1000 Ml Administered 05/04/24 17:17 Dose 1,000 mls @ ud .ROUTE .STK-MED ONE Lab/Rad Data: Laboratory Result Diagrams 05/04/24 13:30 05/04/24 13:38 Laboratory Results 05/04/24 05/04/24 Range/Units 13:38 13:30 WBC 5.5 (3.98-10.04) x10^3/uL RBC 4.16 (3.93-5.22) x10^6/uL Hgb 11.7 (11.2-15.7) g/dL Hct 37.7 (34.1-44.9) % MCV 90.6 (79.4-94.8) fL MCH 28.1 (25.6-32.2) pg MCHC 31.0 L (32.2-35.5) g/dL RDW 14.9 H (11.7-14.4) % Plt Count 184 (182-369) x10^3/uL MPV 9.3 L (9.4-12.3) fL Gran % 73.1 H (34.0-71.1) % Immature Gran % (Auto) 0.2 (0.001-0.429) % Nucleat RBC Rel Count 0.0 (0.00-0.2) % Eos # (Auto) 0.06 (0.04-0.36) x10^3/uL Immature Gran # (Auto) 0.01 (0.001-0.031) x10^3u/L Absolute Lymphs (auto) 0.87 L (1.18-3.74) x10^3/uL Absolute Monos (auto) 0.52 (0.24-0.86) x10^3/uL Absolute Nucleated RBC 0.00 (0.00-0.012) x10^3u/L Lymphocytes % 15.9 L (19.3-51.7) % Monocytes % 9.5 (4.7-12.5) % Eosinophils % 1.1 (0.7-5.8) % Basophils % 0.2 (0.1-1.2) % Absolute Granulocytes 4.00 (1.56-6.13) x10^3/uL Basophils # 0.01 (0.01-0.08) x10^3/uL Sodium 143 (135-145) mmol/L Potassium 3.7 (3.5-5.1) mmol/L Chloride 104 (98-107) mmol/L Carbon Dioxide 30 (22-30) mmol/L Anion Gap 12.3 (5-15) MEQ/L BUN 16 (7-17) mg/dL Creatinine 1.13 H (0.52-1.04) mg/dL Estimated GFR 49.8 ML/MIN Glucose 106 (74-106) mg/dL Calcium 8.8 (8.4-10.2) mg/dL Magnesium 1.9 (1.6-2.3) mg/dL Total Bilirubin 0.40 (0.2-1.3) mg/dL AST 22 (14-36) U/L ALT 16 (0-35) U/L Alkaline Phosphatase 74 (38-126) U/L Serum Total Protein 8.3 H (6.3-8.2) g/dL Albumin 4.2 (3.5-5.0) g/dL - Progress Air Movement: fair Progress Note: patient chest x-ray revealed questionable mass a CT scan of the chest revealed chronic lung findings with no acute findings there is a calcification of the mass that was noted on x-ray I spoke to the patient and informed her of the need for admission she is agreeable I updated the hospitalist with the patient's lab results and chest x-ray results and her need for oxygen and continue DuoNebs she is agreeable and will admit the patient 05/04/24 19:09 Antibiotics given: Yes Discussed with : Other (Dr blanco ) Will see patient in: hospital (observation) Counseled pt/family regarding: lab results, diagnosis, rad results Medical Desision Making - Discussion of managment Care discussed with:: hospitalist Reviewed:: Need for additional workup Agreed on:: decision to admit, place in obs - Departure Departure Disposition: Observation Clinical Impression: Acute dyspnea, COPD exacerbation, Hypoxia Condition: Stable Critical Care Time: Yes Critical Care Time(excluding separately billable procedures): Critical 30-74 mins Referrals: JOSEMANUEL KINGSTON MD [Primary Care Provider] - Follow up/PCP as directed Instructions: Chronic Obstructive Pulmonary Disease
--- NOTE | 2024-05-04 13:33 | XRAY ---
Indication: Dyspnea. Comparison: September 22, 2018 Portable chest now demonstrates right lung base round groundglass opacity at least 3.5 cm in diameter better evaluated with CT chest. Remaining heart and left lung unremarkable again with a few left lung calcified granulomas, tortuous descending aorta, and right Port-A-Cath. Bony thorax intact again with osteopenia and degenerative changes.
[2024-05-04 13:45] LABS: BASOPHIL % 0.2 % (0.1-1.2); Basophil (Absolute #) 0.01 x10^3/uL (0.01-0.08); Eosinophil % 1.1 % (0.7-5.8); Eosinophil (Absolute #) 0.06 x10^3/uL (0.04-0.36); Hematocrit 37.7 % (34.1-44.9); Hemoglobin 11.7 g/dL (11.2-15.7); IMMATURE GRAN # 0.01 x10^3u/L (0.001-0.031); IMMATURE GRAN % 0.2 % (0.001-0.429); Lymphocyte (Absolute #) 0.87 x10^3/uL (1.18-3.74); Lymphocytes % 15.9 % (19.3-51.7); Mean Cell Volume 90.6 fL (79.4-94.8); Mean Corpuscular Hemoglobin 28.1 pg (25.6-32.2); Mean Platelet Volume 9.3 fL (9.4-12.3); Monocyte (Absolute #) 0.52 x10^3/uL (0.24-0.86); Monocytes % 9.5 % (4.7-12.5); Neutrophil % 73.1 % (34.0-71.1); Platelet Count 184 x10^3/uL (182-369); Red Blood Count 4.16 x10^6/uL (3.93-5.22); Red Cell Distribution Width 14.9 % (11.7-14.4); White Blood Count 5.5 x10^3/uL (3.98-10.04)
[2024-05-04 13:59] LABS: ALBUMIN 4.2 g/dL (3.5-5.0); ANION GAP 12.3 MEQ/L (5-15); BILIRUBIN,TOTAL 0.4 mg/dL (0.2-1.3); Calcium 8.8 mg/dL (8.4-10.2); Creatinine 1 1.13 mg/dL (0.52-1.04); EST GLOMERULAR FILTRATION RATE 49.8 ML/MIN; MAGNESIUM 1.9 mg/dL (1.6-2.3); Potassium 3.7 mmol/L (3.5-5.1); Total Protein 8.3 g/dL (6.3-8.2)
[2024-05-04] MEDS ORDERED: HYDROCODONE-CHLORPHEN ER SUSP PO PRN (15:17)
[2024-05-04] MEDS ORDERED: HYDROCODONE-ACETAMIN 2.5-108/5 ML SOLUTION ONE (15:20)
[2024-05-04] MEDS: HYDROCODONE-CHLORPHEN ER SUSP PO PRN (15:39)
[2024-05-04] MEDS ORDERED: Sodium Chloride 0.9% 1000 ML 1,000 ML ONE (17:16)
[2024-05-04] MEDS: Sodium Chloride 0.9% 1000 ML 1,000 ML IV STA (17:38)
--- NOTE | 2024-05-04 20:37 | PCM.HP ---
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 She used her inhaler with out any benefit, she was also given steroids but nothing helped her so she decided to come to ER.In the ER she was hemodynamically stable, All lab w/up was essentially negative,Cxr showed some Right lung opacity that was reevaluated by CT chest.Pt initially kept on 2 liters to keep sats > 90% ,Admitted for further care. - Review of Systems All Other Systems: Reviewed and Negative (14 systems reviewed and marked ve except mentioned in [facility]) Medications & Allergies Home Medications: Home Medication List Omeprazole 40 mg PO DAILY 04/13/19 [History Confirmed 05/04/24] Sucralfate 1 gm [Carafate 1 GM] 1 gm PO BID 04/13/19 [History Confirmed 05/04/24] Cetirizine HCl 10 mg PO DAILY 06/21/19 [History Confirmed 05/04/24] Albuterol 8 gm Mdi Hfa [Ventolin Hfa MDI] 2 puffs IH DAILY PRN PRN 08/16/19 [History Confirmed 05/04/24] Bacillus Coagulans [Probiotic] 1 tab PO DAILY 08/16/19 [History Confirmed 05/04/24] Multivitamin [Multi-Vitamin Daily] 1 each PO DAILY 08/16/19 [History Confirmed 05/04/24] Allergies/Adverse Reactions: Allergies Allergy/AdvReac Type Severity Reaction Status Date / Time ceftriaxone sodium AdvReac Intermediate Verified 05/04/24 12:16 [From Rocephin] - Past Medical History Past Medical History: Yes Neurological History: No Pertinent History ENT History: No Pertinent History Cardiac History: No Pertinent History, Deep Vein Thrombosis Respiratory History: Asthma, Sleep Apnea Endocrine Medical History: No Pertinent History Musculoskelatal History: Arthritis GI Medical History: Gallbladder Disease, Hemorrhoids, Pancreatitis History: No Pertinent History Pyscho-Social History: Anxiety Reproductive Disorders: No Pertinent History Comment: hand tremors, stone in bile duct. - Past Surgical History Past Surgical History: Yes Neuro Surgical History: No Pertinent History Cardiac History: Cardiac Catheterization Respiratory Surgery: No Pertinent History GI Surgical History: Appendectomy, Cholecystectomy, Hernia Repair Genitourinary Surgical Hx: Other Musculskeletal Surgical Hx: Joint Replacement, Orthopedic Surgery Female Surgical History: Hysterectomy Other Surgical History: hiatal hernia repair. right hip replacement. surgical removal of cyst on buttock, ERCP for stone removal Family History: No family history pertaining to this admission reported - Social History Smoking Status: Never smoker Exposure to second hand smoke: No Alcohol: None Drug Use: none - Social Determinants of Health Will the patient participate in the screening: Declined to provide - Physical Exam Vital Signs: Vital Signs - 24 hr Temp Pulse Resp BP BP Pulse Ox 05/04/24 19:15 83 174/76 95 05/04/24 19:12 96 05/04/24 17:00 158/80 97 05/04/24 16:30 147/81 94 L 05/04/24 16:29 93 L 05/04/24 16:20 94 L 05/04/24 16:10 96 05/04/24 16:01 97 05/04/24 15:30 163/91 98 05/04/24 15:00 20 159/77 99 05/04/24 14:30 180/77 98 05/04/24 14:00 171/86 96 05/04/24 13:30 154/82 93 L 05/04/24 13:00 129/67 90 L 05/04/24 12:30 130/62 96 05/04/24 12:24 97.2 F 100 H 20 135/71 98 Additional Findings: HEENT OLd aged, average built in no distress NECK Supple,no thyromegaly, CVS S1+S2 + 0, no murmers RESP Bilateral equal air entry with Wheezes heard GIT Soft non tender,non distended Skin, No rah, no Bruises LEGS No Edema PSYCH Normal,m ood, judgement and insight NEURO AOX3, no focal deficit 05/04/24 20:38 Results - Labs Lab/Micro Results: Lab Results-Last 24 Hours 05/04/24 05/04/24 Range/Units 13:30 13:38 WBC 5.5 (3.98-10.04) x10^3/uL RBC 4.16 (3.93-5.22) x10^6/uL Hgb 11.7 (11.2-15.7) g/dL Hct 37.7 (34.1-44.9) % MCV 90.6 (79.4-94.8) fL MCH 28.1 (25.6-32.2) pg MCHC 31.0 L (32.2-35.5) g/dL RDW 14.9 H (11.7-14.4) % Plt Count 184 (182-369) x10^3/uL MPV 9.3 L (9.4-12.3) fL Gran % 73.1 H (34.0-71.1) % Immature Gran % (Auto) 0.2 (0.001-0.429) % Nucleat RBC Rel Count 0.0 (0.00-0.2) % Eos # (Auto) 0.06 (0.04-0.36) x10^3/uL Immature Gran # (Auto) 0.01 (0.001-0.031) x10^3u/L Absolute Lymphs (auto) 0.87 L (1.18-3.74) x10^3/uL Absolute Monos (auto) 0.52 (0.24-0.86) x10^3/uL Absolute Nucleated RBC 0.00 (0.00-0.012) x10^3u/L Lymphocytes % 15.9 L (19.3-51.7) % Monocytes % 9.5 (4.7-12.5) % Eosinophils % 1.1 (0.7-5.8) % Basophils % 0.2 (0.1-1.2) % Absolute Granulocytes 4.00 (1.56-6.13) x10^3/uL Basophils # 0.01 (0.01-0.08) x10^3/uL Sodium 143 (135-145) mmol/L Potassium 3.7 (3.5-5.1) mmol/L Chloride 104 (98-107) mmol/L Carbon Dioxide 30 (22-30) mmol/L Anion Gap 12.3 (5-15) MEQ/L BUN 16 (7-17) mg/dL Creatinine 1.13 H (0.52-1.04) mg/dL Estimated GFR 49.8 ML/MIN Glucose 106 (74-106) mg/dL Calcium 8.8 (8.4-10.2) mg/dL Magnesium 1.9 (1.6-2.3) mg/dL Total Bilirubin 0.40 (0.2-1.3) mg/dL AST 22 (14-36) U/L ALT 16 (0-35) U/L Alkaline Phosphatase 74 (38-126) U/L Serum Total Protein 8.3 H (6.3-8.2) g/dL Albumin 4.2 (3.5-5.0) g/dL - Radiology Impressions Radiology Exams & Impressions: Radiology Procedures Category Date Time Status CHEST 1 VIEW (PORTABLE) Stat Exams 05/04/24 12:55 Completed CHEST WITH CONTRAST [CT] Stat Exams 05/04/24 14:16 Taken Assessment/Plan (1) COPD exacerbation Current Visit: Yes Status: Acute Code(s): J44.1 - CHRONIC OBSTRUCTIVE PULMONARY DISEASE W (ACUTE) EXACERBATION (2) Acute respiratory failure Current Visit: Yes Status: Acute Code(s): J96.00 - ACUTE RESPIRATORY FAILURE, UNSP W HYPOXIA OR HYPERCAPNIA (3) Abnormal finding on imaging Current Visit: Yes Status: Acute Code(s): R93.89 - ABNORMAL FINDINGS ON DX IMAGING OF OTH BODY STRUCTURES Telemedicine Encounter - Telemedicine Encounter Telemedicine Encounter: The entirety of this encounter was performed via Telemedicine" Acute Resp Failure, Resolved Due to underlying Asthma excerbation Pt was on 2 liters in ER ,now off from oxygen Keep close monitoring COPD exacerbation Will c/w Duonebs, Added Pulmicort 0.5 mg BID Started Solumedrol 40 mg iv every 8hrly Will Hold on AB for now Recurrent DVT Annia in LLE Resumed Eliquis Abnormal Imaging Cxr demonstrates right lung base round groundglass opacity at least 3.5 cm in diameter better evaluated with CT chest Ct chest reviewed reassuring, chronic granulomatous changes with pleural thickening Gastrophageal Reflux disease C/w PPI + Sucralfate DVT PPX Eliquis GIT PPX PPI Code status Full D/c planning, Pending clinical stability i have reviewed pt labs, V/S and imaging in detail , all question/concerns addressed.Pt remained high risk for damage /decline to body function due to ongoing resp insufficiency
[2024-05-04] MEDS ORDERED: PROVENTIL 2.5 MG/3 ML NEB IH ONE (21:48)
[2024-05-04] MEDS: PROVENTIL 2.5 MG/3 ML NEB IH SCH (22:08)
[2024-05-04] MEDS ORDERED: Sterile H2O 10 ml IJ ONE (23:20)
[2024-05-04] MEDS: solu-MEDROL IV SCH (23:21)
[2024-05-04] MEDS: ELIQUIS 2.5 MG TABLET PO SCH (23:22)
[2024-05-04] MEDS: Tessalon Perles 100 MG PO PRN (23:26)
[2024-05-05 04:45] LABS: Hematocrit 38.1 % (34.1-44.9); Hemoglobin 11.6 g/dL (11.2-15.7); Mean Cell Volume 91.8 fL (79.4-94.8); Mean Corpuscular Hgb Concent. 30.4 g/dL (32.2-35.5); Mean Platelet Volume 9.6 fL (9.4-12.3); Platelet Count 163 x10^3/uL (182-369); Red Blood Count 4.15 x10^6/uL (3.93-5.22); Red Cell Distribution Width 14.9 % (11.7-14.4); White Blood Count 4.7 x10^3/uL (3.98-10.04)
[2024-05-05 05:00] LABS: ANION GAP 10.3 MEQ/L (5-15); Calcium 8.7 mg/dL (8.4-10.2); Creatinine 1 0.98 mg/dL (0.52-1.04); EST GLOMERULAR FILTRATION RATE 59.1 ML/MIN; Potassium 4.2 mmol/L (3.5-5.1)
[2024-05-05] MEDS: PULMICORT 0.5 MG/2 ML RESPULES IH SCH (07:28)
[2024-05-05] MEDS ORDERED: APRESOLINE 20 MG/ML INJ IV PRN (07:53)
--- NOTE | 2024-05-05 08:39 | XRAY ---
Indication: "Mass on chest x-ray.". Fever and short of breath. Multiple contiguous axial images obtained through the chest using 80 cc Isovue 370 contrast as ordered. Comparison: September 22, 2018 Lungs again demonstrate small left lower lobe calcified granuloma. New minimal peripheral right lower lobe subsegmental atelectasis/scarring. Stable 3 mm peripheral left upper lobe noncalcified nodule, small lingula bullae, and minimal right base calcified pleural plaquing. No new pulmonary mass/nodule, infiltrate, or effusion. Heart not enlarged again with scattered coronary calcifications and right Port-A-Cath. Aorta again minimally arteriosclerotic without aneurysm/dissection. No pathologic mediastinal/hilar lymphadenopathy. Bony thorax intact again with mild degenerative changes throughout the spine. Limited upper abdomen again demonstrates mild fatty liver. Visualized left kidney demonstrates 2 new cysts, largest 2.3 cm. Also new incompletely visualized IVC filter and incompletely visualizes ventral hernia mesh graft. Impression: 1. No suspicious pulmonary mass/nodule or acute cardiopulmonary abnormalities. Chest radiograph finding likely artifactual due to summation shadows. 2. Again chronic findings including calcified/noncalcified granulomas, lingula bullae, right base calcified pleural plaquing, arteriosclerotic disease, multilevel degenerative spondylosis, fatty liver, and left renal cysts.
[2024-05-05] MEDS ORDERED: NON-FORMULARY ITEM (Omeprazole [Omeprazole] 40 MG Capsule.Dr) PO SCH (10:00)
[2024-05-05] MEDS ORDERED: NON-FORMULARY ITEM (Multivitamin [Multi-Vitamin Daily] 1 EACH Tablet) PO SCH (10:00)
[2024-05-05] MEDS ORDERED: NON-FORMULARY ITEM (Cetirizine Hcl [Cetirizine Hcl] 10 MG Tablet) PO SCH (10:00)
[2024-05-05] MEDS ORDERED: BACILLUS COAGULANS PO SCH (10:00)
[2024-05-05] MEDS: Robitussin-Dm Syrup PO PRN (10:00)
[2024-05-05] MEDS: Acidophilus TABLET PO SCH (10:03)
[2024-05-05] MEDS: TYLENOL 325 MG PO PRN (10:03)
[2024-05-05] MEDS: THERAGRAN MULTIVITAMIN PO SCH (10:03)
[2024-05-05] MEDS: Protonix 40MG Tablet PO SCH (10:04)
[2024-05-05] MEDS: Carafate 1 GM PO SCH (10:04)
[2024-05-05] MEDS: CLARITIN 10 MG PO SCH (10:05)
--- NOTE | 2024-05-05 12:12 | PCM.NOTE ---
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 She used her inhaler with out any benefit, she was also given steroids but nothing helped her so she decided to come to ER.In the ER she was hemodynamically stable, All lab w/up was essentially negative,Cxr showed some Right lung opacity that was reevaluated by CT chest with no acute findings.Pt initially kept on 2 liters to keep sats > 90% ,which has been continued. 05/05/24: Met and examined patient bedside. Endorses that dyspnea is improved. She continues to have a productive cough with clear sputum. Lung sounds with noted crackles and wheezing bilaterally on auscultation. She is RA at baseline, requiring 2L of oxygen currently. Denies fevers overnight. Denies cp, abdominal pain, LOUIE, dizziness, N/V/D. Plan for continued steroids, abx, nebs/bronchodilators. Labs unremarkable. - Review of Systems Constitutional: No Symptoms Eyes: No Symptoms Ears, Nose, & Throat: Sinus Drainage Respiratory: Cough, Short Of Breath, Wheezing Cardiac: No Symptoms Abdominal/Gastrointestinal: No Symptoms Genitourinary Symptoms: No Symptoms Musculoskeletal: No Symptoms Skin: No Symptoms Neurological: No Symptoms Psychological: No Symptoms Endocrine: No Symptoms Hematologic/Lymphatic: No Symptoms Immunological/Allergic: No Symptoms Objective Exam General Appearance: no apparent distress Neurologic Exam: alert, oriented x 3, cooperative Skin Exam: normal color Eye Exam: PERRL Ears, Nose, Throat Exam: normal ENT inspection Neck Exam: normal inspection Respiratory Exam: crackles/rales, wheezing Cardiovascular Exam: regular rate/rhythm, normal heart sounds Gastrointestinal/Abdomen Exam: soft, normal bowel sounds Extremity Exam: swelling (LLE 1+, RLE trace) Back Exam: normal inspection Objective Data Vital Signs: Vital Signs - 24 hr Temp Pulse Resp BP BP Pulse Ox 05/05/24 11:21 97.0 F 69 19 125/57 95 05/05/24 07:31 97.7 F 93 H 21 192/84 94 L 05/05/24 07:29 96 H 20 88 L 05/05/24 04:00 98.2 F 75 17 180/71 99 05/04/24 23:50 98.2 F 78 20 138/65 98 05/04/24 22:07 83 20 96 05/04/24 20:43 99.8 F 88 20 194/88 99 05/04/24 19:15 83 174/76 95 05/04/24 19:12 96 05/04/24 17:00 158/80 97 05/04/24 16:30 147/81 94 L 05/04/24 16:29 93 L 05/04/24 16:20 94 L 05/04/24 16:10 96 05/04/24 16:01 97 05/04/24 15:30 163/91 98 05/04/24 15:00 20 159/77 99 05/04/24 14:30 180/77 98 05/04/24 14:00 171/86 96 05/04/24 13:30 154/82 93 L 05/04/24 13:00 129/67 90 L 05/04/24 12:30 130/62 96 05/04/24 12:24 97.2 F 100 H 20 135/71 98 Pain Assessment - Last Documented Pain Intensity 7 Pain Scale Used 0-10 Pain Scale Intake and Output: Intake & Output 05/03/24 05/04/24 05/05/24 05/06/24 11:59 11:59 11:59 11:59 Intake Total 760 Balance 760 Weight 95.6 kg Lab Results: Lab Results-Last 24 Hours 05/04/24 05/04/24 05/05/24 Range/Units 13:30 13:38 04:20 WBC 5.5 4.7 (3.98-10.04) x10^3/uL RBC 4.16 4.15 (3.93-5.22) x10^6/uL Hgb 11.7 11.6 (11.2-15.7) g/dL Hct 37.7 38.1 (34.1-44.9) % MCV 90.6 91.8 (79.4-94.8) fL MCH 28.1 28.0 (25.6-32.2) pg MCHC 31.0 L 30.4 L (32.2-35.5) g/dL RDW 14.9 H 14.9 H (11.7-14.4) % Plt Count 184 163 L (182-369) x10^3/uL MPV 9.3 L 9.6 (9.4-12.3) fL Gran % 73.1 H (34.0-71.1) % Immature Gran % (Auto) 0.2 (0.001-0.429) % Nucleat RBC Rel Count 0.0 (0.00-0.2) % Eos # (Auto) 0.06 (0.04-0.36) x10^3/uL Immature Gran # (Auto) 0.01 (0.001-0.031) x10^3u/L Absolute Lymphs (auto) 0.87 L (1.18-3.74) x10^3/uL Absolute Monos (auto) 0.52 (0.24-0.86) x10^3/uL Absolute Nucleated RBC 0.00 (0.00-0.012) x10^3u/L Lymphocytes % 15.9 L (19.3-51.7) % Monocytes % 9.5 (4.7-12.5) % Eosinophils % 1.1 (0.7-5.8) % Basophils % 0.2 (0.1-1.2) % Absolute Granulocytes 4.00 (1.56-6.13) x10^3/uL Basophils # 0.01 (0.01-0.08) x10^3/uL Sodium 143 (135-145) mmol/L Potassium 3.7 (3.5-5.1) mmol/L Chloride 104 (98-107) mmol/L Carbon Dioxide 30 (22-30) mmol/L Anion Gap 12.3 (5-15) MEQ/L BUN 16 (7-17) mg/dL Creatinine 1.13 H (0.52-1.04) mg/dL Estimated GFR 49.8 ML/MIN Glucose 106 (74-106) mg/dL Calcium 8.8 (8.4-10.2) mg/dL Magnesium 1.9 (1.6-2.3) mg/dL Total Bilirubin 0.40 (0.2-1.3) mg/dL AST 22 (14-36) U/L ALT 16 (0-35) U/L Alkaline Phosphatase 74 (38-126) U/L Serum Total Protein 8.3 H (6.3-8.2) g/dL Albumin 4.2 (3.5-5.0) g/dL 05/05/24 Range/Units 04:20 WBC (3.98-10.04) x10^3/uL RBC (3.93-5.22) x10^6/uL Hgb (11.2-15.7) g/dL Hct (34.1-44.9) % MCV (79.4-94.8) fL MCH (25.6-32.2) pg MCHC (32.2-35.5) g/dL RDW (11.7-14.4) % Plt Count (182-369) x10^3/uL MPV (9.4-12.3) fL Gran % (34.0-71.1) % Immature Gran % (Auto) (0.001-0.429) % Nucleat RBC Rel Count (0.00-0.2) % Eos # (Auto) (0.04-0.36) x10^3/uL Immature Gran # (Auto) (0.001-0.031) x10^3u/L Absolute Lymphs (auto) (1.18-3.74) x10^3/uL Absolute Monos (auto) (0.24-0.86) x10^3/uL Absolute Nucleated RBC (0.00-0.012) x10^3u/L Lymphocytes % (19.3-51.7) % Monocytes % (4.7-12.5) % Eosinophils % (0.7-5.8) % Basophils % (0.1-1.2) % Absolute Granulocytes (1.56-6.13) x10^3/uL Basophils # (0.01-0.08) x10^3/uL Sodium 140 (135-145) mmol/L Potassium 4.2 (3.5-5.1) mmol/L Chloride 104 (98-107) mmol/L Carbon Dioxide 30 (22-30) mmol/L Anion Gap 10.3 (5-15) MEQ/L BUN 14 (7-17) mg/dL Creatinine 0.98 (0.52-1.04) mg/dL Estimated GFR 59.1 ML/MIN Glucose 147 H (74-106) mg/dL Calcium 8.7 (8.4-10.2) mg/dL Magnesium (1.6-2.3) mg/dL Total Bilirubin (0.2-1.3) mg/dL AST (14-36) U/L ALT (0-35) U/L Alkaline Phosphatase (38-126) U/L Serum Total Protein (6.3-8.2) g/dL Albumin (3.5-5.0) g/dL Radiology Exams: Radiology Procedures Category Date Time Status CHEST 1 VIEW (PORTABLE) Stat Exams 05/04/24 12:55 Completed CHEST WITH CONTRAST [CT] Stat Exams 05/04/24 14:16 Completed Assessment/Plan (1) Acute respiratory failure with hypoxemia Current Visit: Yes Status: Acute Assessment & Plan: -secondary to copd exacerbation -Cxr demonstrates right lung base round groundglass opacity at least 3.5 cm in diameter better evaluated with CT chest Ct chest reviewed reassuring, chronic granulomatous changes with pleural thickening -Supplemental oxygen with spo2 goal 88-92% - RA at baseline, current oxygen at 2L -ABG if increased lethargy/confusion -levaquin -RT following, Duonebs/INH/solu-medrol - continue -order viral resp rangel Code(s): J96.01 - ACUTE RESPIRATORY FAILURE WITH HYPOXIA (2) History of DVT (deep vein thrombosis) Current Visit: Yes Status: Acute Assessment & Plan: -continue eliquis Code(s): Z86.718 - PERSONAL HISTORY OF OTHER VENOUS THROMBOSIS AND EMBOLISM (3) GERD (gastroesophageal reflux disease) Current Visit: Yes Status: Acute Assessment & Plan: -continue home meds Code(s): K21.9 - GASTRO-ESOPHAGEAL REFLUX DISEASE WITHOUT ESOPHAGITIS (4) RAMONA (obstructive sleep apnea) Current Visit: Yes Status: Acute Assessment & Plan: -CPAP at night Code(s): G47.33 - OBSTRUCTIVE SLEEP APNEA (ADULT) (PEDIATRIC) (5) COPD exacerbation Current Visit: Yes Status: Acute Assessment & Plan: -Supplemental oxygen with goal spo2 88-92% -Continue duonebs/INH/steroids/levaquin -resp viral panel pending -RA at baseline, 2L now, will attempt to wean, qualify for home oxygen if needed DVT PPX Eliquis GIT PPX PPI Code status Full D/c planning, Pending clinical stability Code(s): J44.1 - CHRONIC OBSTRUCTIVE PULMONARY DISEASE W (ACUTE) EXACERBATION
[2024-05-05 13:27] LABS: INFLUENZA A NEGATIVE (NEGATIVE); INFLUENZA B NEGATIVE (NEGATIVE); RESPIRATORY SYNCTIAL VIRUS NEGATIVE (NEGATIVE); SARS-CoV-2 Xpert Express NEGATIVE (NEGATIVE)
[2024-05-05] MEDS: LEVOFLOXACIN 750MG/150ML D5W 750 MG/150 ML BAG IV SCH (13:56)
[2024-05-05] MEDS: solu-MEDROL 40 MG, Sterile H2O 10 ml 1 ML IV SCH (13:56)
[2024-05-06 05:14] LABS: BASOPHIL % 0.2 % (0.1-1.2); Basophil (Absolute #) 0.01 x10^3/uL (0.01-0.08); Eosinophil (Absolute #) 0 x10^3/uL (0.04-0.36); Hematocrit 36.9 % (34.1-44.9); Hemoglobin 11.5 g/dL (11.2-15.7); IMMATURE GRAN # 0.03 x10^3u/L (0.001-0.031); IMMATURE GRAN % 0.5 % (0.001-0.429); Lymphocyte (Absolute #) 0.86 x10^3/uL (1.18-3.74); Lymphocytes % 14.8 % (19.3-51.7); Mean Cell Volume 90.7 fL (79.4-94.8); Mean Corpuscular Hemoglobin 28.3 pg (25.6-32.2); Mean Corpuscular Hgb Concent. 31.2 g/dL (32.2-35.5); Mean Platelet Volume 9.4 fL (9.4-12.3); Monocytes % 6.9 % (4.7-12.5); Neutrophil % 77.6 % (34.0-71.1); Platelet Count 182 x10^3/uL (182-369); Red Blood Count 4.07 x10^6/uL (3.93-5.22); Red Cell Distribution Width 14.9 % (11.7-14.4); White Blood Count 5.8 x10^3/uL (3.98-10.04)
[2024-05-06 05:41] LABS: ALBUMIN 3.9 g/dL (3.5-5.0); ANION GAP 10.8 MEQ/L (5-15); BILIRUBIN,TOTAL 0.3 mg/dL (0.2-1.3); Creatinine 1 1.07 mg/dL (0.52-1.04); EST GLOMERULAR FILTRATION RATE 53.2 ML/MIN; Total Protein 7.8 g/dL (6.3-8.2)
--- NOTE | 2024-05-06 05:44 | PCM.NOTE ---
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 She used her inhaler with out any benefit, she was also given steroids but nothing helped her so she decided to come to ER.In the ER she was hemodynamically stable, All lab w/up was essentially negative,Cxr showed some Right lung opacity that was reevaluated by CT chest with no acute findings.Pt initially kept on 2 liters to keep sats > 90% ,which has been continued. 05/05/24: Met and examined patient bedside. Endorses that dyspnea is improved. She continues to have a productive cough with clear sputum. Lung sounds with noted crackles and wheezing bilaterally on auscultation. She is RA at baseline, requiring 2L of oxygen currently. Denies fevers overnight. Denies cp, abdominal pain, LOUIE, dizziness, N/V/D. Plan for continued steroids, abx, nebs/bronchodilators. Labs unremarkable. 05/06/24 No overnight events noted. Dyspnea/wheezing improved. Productive cough with clear sputum. Patient at baseline RA. Lung sounds with exp wheezing. Labs and vitals stable. Continue current management, possible discharge tomorrow. - Review of Systems Constitutional: No Symptoms Eyes: No Symptoms Ears, Nose, & Throat: No Symptoms Respiratory: Cough, Short Of Breath Cardiac: No Symptoms Abdominal/Gastrointestinal: No Symptoms Genitourinary Symptoms: No Symptoms Musculoskeletal: No Symptoms Skin: No Symptoms Neurological: No Symptoms Psychological: No Symptoms Endocrine: No Symptoms Hematologic/Lymphatic: No Symptoms Immunological/Allergic: No Symptoms Objective Exam General Appearance: no apparent distress Neurologic Exam: alert, oriented x 3, cooperative Skin Exam: normal color Eye Exam: PERRL Ears, Nose, Throat Exam: normal ENT inspection Neck Exam: normal inspection Respiratory Exam: wheezing Cardiovascular Exam: regular rate/rhythm, normal heart sounds Gastrointestinal/Abdomen Exam: soft, normal bowel sounds Extremity Exam: swelling (LLE) Back Exam: normal inspection Pelvic Exam: deferred Rectal Exam: deferred Objective Data Vital Signs: Vital Signs - 24 hr Temp Pulse Resp BP Pulse Ox 05/06/24 04:00 97.9 F 78 20 159/75 95 05/06/24 00:00 98.4 F 73 18 147/63 96 05/05/24 20:11 95 05/05/24 20:08 76 16 95 05/05/24 20:00 98.4 F 78 19 157/71 99 05/05/24 16:00 97.3 F 70 19 160/68 96 05/05/24 11:21 97.0 F 69 19 125/57 95 05/05/24 07:31 97.7 F 93 H 21 192/84 94 L 05/05/24 07:29 96 H 20 88 L Pain Assessment - Last Documented Pain Intensity 0 Pain Scale Used 0-10 Pain Scale Intake and Output: Intake & Output 05/03/24 05/04/24 05/05/24 05/06/24 11:59 11:59 11:59 11:59 Intake Total 760 2210 Balance 760 2210 Weight 95.6 kg Lab Results: Lab Results-Last 24 Hours 05/05/24 05/06/24 Range/Units 12:38 04:50 WBC 5.8 (3.98-10.04) x10^3/uL RBC 4.07 (3.93-5.22) x10^6/uL Hgb 11.5 (11.2-15.7) g/dL Hct 36.9 (34.1-44.9) % MCV 90.7 (79.4-94.8) fL MCH 28.3 (25.6-32.2) pg MCHC 31.2 L (32.2-35.5) g/dL RDW 14.9 H (11.7-14.4) % Plt Count 182 (182-369) x10^3/uL MPV 9.4 (9.4-12.3) fL Gran % 77.6 H (34.0-71.1) % Immature Gran % (Auto) 0.5 H (0.001-0.429) % Nucleat RBC Rel Count 0.0 (0.00-0.2) % Eos # (Auto) 0 L (0.04-0.36) x10^3/uL Immature Gran # (Auto) 0.03 (0.001-0.031) x10^3u/L Absolute Lymphs (auto) 0.86 L (1.18-3.74) x10^3/uL Absolute Monos (auto) 0.40 (0.24-0.86) x10^3/uL Absolute Nucleated RBC 0.00 (0.00-0.012) x10^3u/L Lymphocytes % 14.8 L (19.3-51.7) % Monocytes % 6.9 (4.7-12.5) % Eosinophils % 0.0 L (0.7-5.8) % Basophils % 0.2 (0.1-1.2) % Absolute Granulocytes 4.50 (1.56-6.13) x10^3/uL Basophils # 0.01 (0.01-0.08) x10^3/uL Influenza Type A Ag NEGATIVE (NEGATIVE) Influenza Type B Ag NEGATIVE (NEGATIVE) RSV (PCR) NEGATIVE (NEGATIVE) SARS-CoV-2 (PCR) NEGATIVE (NEGATIVE) Radiology Exams: Radiology Procedures Category Date Time Status CHEST 1 VIEW (PORTABLE) Stat Exams 05/04/24 12:55 Completed CHEST WITH CONTRAST [CT] Stat Exams 05/04/24 14:16 Completed Assessment/Plan (1) Acute respiratory failure with hypoxemia Current Visit: Yes Status: Acute Assessment & Plan: -secondary to copd exacerbation -Cxr demonstrates right lung base round groundglass opacity at least 3.5 cm in diameter better evaluated with CT chest Ct chest reviewed reassuring, chronic granulomatous changes with pleural thickening -Supplemental oxygen with spo2 goal 88-92% - RA at baseline, current oxygen at 2L -ABG if increased lethargy/confusion -levaquin -RT following, Duonebs/INH/solu-medrol - continue -order viral resp rangel 05/06: -At baseline RA -Wheezing improved -continue abx/steroids Code(s): J96.01 - ACUTE RESPIRATORY FAILURE WITH HYPOXIA (2) History of DVT (deep vein thrombosis) Current Visit: Yes Status: Acute Assessment & Plan: -continue eliquis Code(s): Z86.718 - PERSONAL HISTORY OF OTHER VENOUS THROMBOSIS AND EMBOLISM (3) GERD (gastroesophageal reflux disease) Current Visit: Yes Status: Acute Assessment & Plan: -continue home meds Code(s): K21.9 - GASTRO-ESOPHAGEAL REFLUX DISEASE WITHOUT ESOPHAGITIS (4) RAMONA (obstructive sleep apnea) Current Visit: Yes Status: Acute Assessment & Plan: -CPAP at night Code(s): G47.33 - OBSTRUCTIVE SLEEP APNEA (ADULT) (PEDIATRIC) (5) COPD exacerbation Current Visit: Yes Status: Acute Assessment & Plan: -Supplemental oxygen with goal spo2 88-92% -Continue duonebs/INH/steroids/levaquin -resp viral panel pending -RA at baseline, 2L now, will attempt to wean, qualify for home oxygen if needed 05/06: -Now at RA which is her baseline -Continue steroids - change to oral, continue abx, possible dc home tomorrow DVT PPX Eliquis GIT PPX PPI Code status Full D/c planning, Pending clinical stability Code(s): J96.01 - ACUTE RESPIRATORY FAILURE WITH HYPOXIA (2) History of DVT (deep vein thrombosis) Current Visit: Yes Status: Acute Code(s): Z86.718 - PERSONAL HISTORY OF OTHER VENOUS THROMBOSIS AND EMBOLISM (3) GERD (gastroesophageal reflux disease) Current Visit: Yes Status: Acute Code(s): K21.9 - GASTRO-ESOPHAGEAL REFLUX DISEASE WITHOUT ESOPHAGITIS (4) RAMONA (obstructive sleep apnea) Current Visit: Yes Status: Acute Code(s): G47.33 - OBSTRUCTIVE SLEEP APNEA (ADULT) (PEDIATRIC) (5) COPD exacerbation Current Visit: Yes Status: Acute Code(s): J44.1 - CHRONIC OBSTRUCTIVE PULMONARY DISEASE W (ACUTE) EXACERBATION
[2024-05-06] MEDS: DELTASONE 20 MG PO SCH (21:43)
--- NOTE | 2024-05-07 05:25 | PCM.DS ---
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 She used her inhaler with out any benefit, she was also given steroids but nothing helped her so she decided to come to ER.In the ER she was hemodynamically stable, All lab w/up was essentially negative,Cxr showed some Right lung opacity that was reevaluated by CT chest with no acute findings.Pt initially kept on 2 liters to keep sats > 90% ,now at RA. Dyspnea and cough have improved. Will send home with levaquin and prednisone. nebulizer machine with duonebs. Patient has had elevated BP during admission, will send home on amlodipine 5mg. Advised to get BP machine and keep log until follow up with PCP Discharge Note New Diagnosis: COPD exacerbation New Medications: levaquin/prednisone/DuoNeb/Amlodipine Follow Up: PCP/Pulm Latest Assessment & Plan (1) Acute respiratory failure with hypoxemia Current Visit: Yes Status: Acute Assessment & Plan: -secondary to copd exacerbation -Cxr demonstrates right lung base round groundglass opacity at least 3.5 cm in diameter better evaluated with CT chest Ct chest reviewed reassuring, chronic granulomatous changes with pleural thickening -Supplemental oxygen with spo2 goal 88-92% - RA at baseline, current oxygen at 2L -ABG if increased lethargy/confusion -levaquin -RT following, Duonebs/INH/solu-medrol - continue -order viral resp rangel 05/06: -At baseline RA -Wheezing improved -continue abx/steroids Code(s): J96.01 - ACUTE RESPIRATORY FAILURE WITH HYPOXIA (2) History of DVT (deep vein thrombosis) Current Visit: Yes Status: Acute Assessment & Plan: -continue eliquis Code(s): Z86.718 - PERSONAL HISTORY OF OTHER VENOUS THROMBOSIS AND EMBOLISM (3) GERD (gastroesophageal reflux disease) Current Visit: Yes Status: Acute Assessment & Plan: -continue home meds Code(s): K21.9 - GASTRO-ESOPHAGEAL REFLUX DISEASE WITHOUT ESOPHAGITIS (4) RAMONA (obstructive sleep apnea) Current Visit: Yes Status: Acute Assessment & Plan: -CPAP at night Code(s): G47.33 - OBSTRUCTIVE SLEEP APNEA (ADULT) (PEDIATRIC) (5) COPD exacerbation Current Visit: Yes Status: Acute Assessment & Plan: -Supplemental oxygen with goal spo2 88-92% -Continue duonebs/INH/steroids/levaquin -resp viral panel pending -RA at baseline, 2L now, will attempt to wean, qualify for home oxygen if needed 05/06: -Now at RA which is her baseline -Continue steroids - change to oral, continue abx, possible dc home tomorrow DVT PPX Eliquis GIT PPX PPI Code status Full I spent 35 minutes [id number] with the patient on the day of discharge performing discharge exam, discussing hospital stay and discharge instructions with patient and caregivers, preparation of discharge records, prescriptions & referral forms and addressing any questions/concerns the patient had as documented above. - Vitals & Intake/Output Vital Signs: Vital Signs Temperature 97.2 F 05/07/24 04:00 Pulse Rate 71 05/07/24 04:00 Respiratory Rate 18 05/07/24 04:00 Blood Pressure 191/83 05/07/24 04:00 O2 Sat by Pulse Oximetry 96 05/07/24 04:00 Intake & Output: Intake & Output 05/04/24 05/05/24 05/06/24 05/07/24 11:59 11:59 11:59 11:59 Intake Total 760 2790 1460 Balance 760 2790 1460 Weight 95.6 kg - Lab Result Diagrams: 05/07/24 05:36 05/07/24 05:36 Lab Results-Last 24 Hrs: Lab Results-Last 24 Hours 05/06/24 05/06/24 Range/Units 04:50 04:50 WBC 5.8 (3.98-10.04) x10^3/uL RBC 4.07 (3.93-5.22) x10^6/uL Hgb 11.5 (11.2-15.7) g/dL Hct 36.9 (34.1-44.9) % MCV 90.7 (79.4-94.8) fL MCH 28.3 (25.6-32.2) pg MCHC 31.2 L (32.2-35.5) g/dL RDW 14.9 H (11.7-14.4) % Plt Count 182 (182-369) x10^3/uL MPV 9.4 (9.4-12.3) fL Gran % 77.6 H (34.0-71.1) % Immature Gran % (Auto) 0.5 H (0.001-0.429) % Nucleat RBC Rel Count 0.0 (0.00-0.2) % Eos # (Auto) 0 L (0.04-0.36) x10^3/uL Immature Gran # (Auto) 0.03 (0.001-0.031) x10^3u/L Absolute Lymphs (auto) 0.86 L (1.18-3.74) x10^3/uL Absolute Monos (auto) 0.40 (0.24-0.86) x10^3/uL Absolute Nucleated RBC 0.00 (0.00-0.012) x10^3u/L Lymphocytes % 14.8 L (19.3-51.7) % Monocytes % 6.9 (4.7-12.5) % Eosinophils % 0.0 L (0.7-5.8) % Basophils % 0.2 (0.1-1.2) % Absolute Granulocytes 4.50 (1.56-6.13) x10^3/uL Basophils # 0.01 (0.01-0.08) x10^3/uL Sodium 139 (135-145) mmol/L Potassium 4.0 (3.5-5.1) mmol/L Chloride 103 (98-107) mmol/L Carbon Dioxide 30 (22-30) mmol/L Anion Gap 10.8 (5-15) MEQ/L BUN 23 H (7-17) mg/dL Creatinine 1.07 H (0.52-1.04) mg/dL Estimated GFR 53.2 ML/MIN Glucose 147 H (74-106) mg/dL Calcium 9.0 (8.4-10.2) mg/dL Total Bilirubin 0.30 (0.2-1.3) mg/dL AST 23 (14-36) U/L ALT 15 (0-35) U/L Alkaline Phosphatase 62 (38-126) U/L Serum Total Protein 7.8 (6.3-8.2) g/dL Albumin 3.9 (3.5-5.0) g/dL - Procedures and Test Procedures and Tests throughout Hospitalization: Therapy Orders & Screens 05/04/24 22:07 BiPap/CPAP ROUTINE Comment: Diagnosis: COPD exacerbation Oxygen Nasal Cannula 2 lpm Comment: Diagnosis: COPD exacerbation Respiratory Therapy Assessment DAILY Comment: Diagnosis: COPD exacerbation Discharge Exam General Appearance: no apparent distress Neurologic Exam: alert, oriented x 3, cooperative Eye Exam: PERRL Ears, Nose, Throat Exam: normal ENT inspection Neck Exam: normal inspection Respiratory Exam: wheezing Cardiovascular Exam: regular rate/rhythm, normal heart sounds Gastrointestinal/Abdomen Exam: soft, normal bowel sounds Pelvic Exam: deferred Rectal Exam: deferred Extremity Exam: normal inspection Skin Exam: normal color Lymphatic Exam: adenopathy Final Diagnosis/Problem List - Final Discharge Diagnosis/Problem (1) Acute respiratory failure with hypoxemia Current Visit: Yes Status: Acute Code(s): J96.01 - ACUTE RESPIRATORY FAILURE WITH HYPOXIA (2) History of DVT (deep vein thrombosis) Current Visit: Yes Status: Acute Code(s): Z86.718 - PERSONAL HISTORY OF OTHER VENOUS THROMBOSIS AND EMBOLISM (3) GERD (gastroesophageal reflux disease) Current Visit: Yes Status: Acute Code(s): K21.9 - GASTRO-ESOPHAGEAL REFLUX DISEASE WITHOUT ESOPHAGITIS (4) RAMONA (obstructive sleep apnea) Current Visit: Yes Status: Acute Code(s): G47.33 - OBSTRUCTIVE SLEEP APNEA (ADULT) (PEDIATRIC) (5) COPD exacerbation Current Visit: Yes Status: Acute Code(s): J44.1 - CHRONIC OBSTRUCTIVE PULMONARY DISEASE W (ACUTE) EXACERBATION - Discharge Disposition: Home, Self-Care Condition: Stable Prescriptions: New Nebulizer Accessories [A.i.r.s. Nebulizer] 1 each MC QID PRN #1 kit Prednisone 20 mg [Deltasone 20 mg] 20 mg PO BID 5 Days #10 tablet Albuterol/Ipratropium 3ml Neb* [DUONEB 0.5-3 MG/3 ml Neb] 3 ml IH Q4HPRN PRN 30 Days #120 amp MDD 6 PRN Reason: Shortness Of Breath/Wheezing Apixaban [Eliquis 2.5 mg Tablet] 5 mg PO BID tablet levoFLOXacin [Levofloxacin] 750 mg PO DAILY 5 Days #5 tablet Nebulizer 1 each MC QID PRN 30 Days #1 unit Amlodipine Besylate 5 mg [Norvasc 5 mg] 5 mg PO DAILY 30 Days #30 tablet Continue Sucralfate 1 gm [Carafate 1 GM] 1 gm PO BID Omeprazole 40 mg PO DAILY Cetirizine HCl 10 mg PO DAILY Albuterol 8 gm Mdi Hfa [Ventolin Hfa MDI] 2 puffs IH DAILY PRN PRN PRN Reason: Shortness Of Breath Multivitamin [Multi-Vitamin Daily] 1 each PO DAILY Bacillus Coagulans [Probiotic] 1 tab PO DAILY Follow up with: SHANNON FRAGOSO FNP [[employer]IED HE[employer] PROFESSION STAFF] - 05/25/24 11:00 am (at [place] office with 's DIRECTOR OF CATEGORY MANAGEMENT) JOSEMANUEL KINGSTON MD [Primary Care Provider] - 05/19/24 3:15 pm
[2024-05-07 06:03] LABS: Absolute Neutrophil Ct (ANC) 4.22 x10^3/uL (1.56-6.13); BASOPHIL % 0.2 % (0.1-1.2); Basophil (Absolute #) 0.01 x10^3/uL (0.01-0.08); Eosinophil % 0.3 % (0.7-5.8); Eosinophil (Absolute #) 0.02 x10^3/uL (0.04-0.36); Hematocrit 35.8 % (34.1-44.9); Hemoglobin 11.1 g/dL (11.2-15.7); IMMATURE GRAN # 0.03 x10^3u/L (0.001-0.031); IMMATURE GRAN % 0.5 % (0.001-0.429); Lymphocyte (Absolute #) 1.41 x10^3/uL (1.18-3.74); Lymphocytes % 22.8 % (19.3-51.7); Mean Cell Volume 90.9 fL (79.4-94.8); Mean Corpuscular Hemoglobin 28.2 pg (25.6-32.2); Mean Platelet Volume 9.7 fL (9.4-12.3); Monocyte (Absolute #) 0.49 x10^3/uL (0.24-0.86); Monocytes % 7.9 % (4.7-12.5); Neutrophil % 68.3 % (34.0-71.1); Platelet Count 190 x10^3/uL (182-369); Red Blood Count 3.94 x10^6/uL (3.93-5.22); White Blood Count 6.2 x10^3/uL (3.98-10.04)
[2024-05-07 06:32] LABS: ALBUMIN 3.5 g/dL (3.5-5.0); BILIRUBIN,TOTAL 0.4 mg/dL (0.2-1.3); Creatinine 1 1.03 mg/dL (0.52-1.04); EST GLOMERULAR FILTRATION RATE 55.7 ML/MIN; Potassium 3.6 mmol/L (3.5-5.1)
[2024-05-07 08:04] VITALS: PULSE 75; RESP 18; O2SAT 94
[2024-05-07 11:44] VITALS: BP 188/83; TEMP 98.7
== END 2024-05-07 16:21 | disposition home or self-care (01) ==
LOC: ED 12:04 → MED SURG 19:24
PROVIDERS: ADMIT Internal Medicine; ATTEND Internal Medicine
DX: J96.01 Acute respiratory failure with hypoxia (principal); Z86.718 Personal history of other venous thrombosis and embolism; K21.9 Gastro-esophageal reflux disease without esophagitis; G47.33 Obstructive sleep apnea (adult) (pediatric); J44.1 Chronic obstructive pulmonary disease with (acute) exacerbation; R93.89 Abnormal findings on diagnostic imaging of other specified body structures; Z79.01 Long term (current) use of anticoagulants; Z79.899 Other long term (current) drug therapy
CPT/HCPCS: 0241U; 36000; 36415; 71045; 71260; 80048; 80053; 83735; 85025; 85027; 94003; 94640; 94660; 94760; 99284; 99291; G0378; Q3014; J1956; J2919; J7609; A9270-GY